=== PATIENT | male | born 1960 | race Caucasian/White ===

== ENCOUNTER 2018-12-26 08:55 | Inpatient (IN) | payer SELFPAY ==
[2018-12-26] MEDS ORDERED: PIPERACILLIN/TAZOBACTAM 3.375 GM VIAL IV ONE (09:17)
--- NOTE | 2018-12-26 09:20 | ER Document Report ---
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 Hypotensive and tachycardic prior to arrival. Lactic increased per EMS the other [id number] measurement. Seen at [place] typically. TRAVEL OUTSIDE OF THE [place] IN LAST 30 DAYS: No - Related Data Allergies/Adverse Reactions: codeine Adverse Reaction (Verified 12/19/18 16:37) latex Adverse Reaction (Verified 12/19/18 16:37) Past Medical History - General Information source: Patient - Social History Smoking Status: Former Smoker Chew tobacco use (# tins/day): No Frequency of alcohol use: None Drug Abuse: None Family History: Reviewed & Not Pertinent Patient has suicidal ideation: No Patient has homicidal ideation: No Neurological Medical History: Reports: Hx Seizures Renal/ Medical History: Denies: Hx Peritoneal Dialysis Malignancy Medical History: Reports Hx Liver Cancer GI Medical History: Reports: Hx Gastroesophageal Reflux Disease Review of Systems - Review of Systems Notes: REVIEW OF SYSTEMS GEN: This, no fevers ENT: Denies sore throat, nasal discharge, ear pain EYES: Denies blurry vision, eye pain, discharge CV: Denies chest pain, palpitations, edema of breath as of breath Respiratory: Shortness of breath GI: Denies abdominal pain, nausea, vomiting, diarrhea MSK: Denies joint pain/swelling, edema, SKIN: Denies rash, skin lesions LYMPH: Denies swollen glands/lymph nodes NEURO: Denies headache, focal weakness or numbness, dizziness PSYCH: Denies depression, suicidal or homicidal ideation PHYSICAL EXAMINATION General: Cachectic and weak Head: Atraumatic, normocephalic ENT: Mouth normal, oropharynx moist, no exudates or tonsillar enlargement Eyes: Conjunctiva normal, pupils equal, lids normal Neck: No JVD, supple, no guarding CVS: Normal rate, regular rhythm, no murmurs Resp: No resp distress, equal and normal breath sounds bilaterally GI: Nondistended, soft, no tenderness to palpation, no rebound or guarding clear biliary drainage from percutaneous drain. Ext: No deformities, no edema, normal range of motion in upper and lower ext Back: No CVA or midline TTP Skin: No rash, warm Lymphatic: No lymphadeopathy noted Neuro: Awake, alert. Face symmetric. GCS 15. Physical Exam - Vital signs Vitals: Pulse Resp BP 78 18 103/82 12/26/18 09:42 12/26/18 09:42 12/26/18 09:42 Course - Re-evaluation Re-evalutation: 12/26/18 09:19 Cancer patient presents with dehydration versus sepsis. Will give 30 mL/kg. Lactic already elevated per EMS. Ordered Zosyn. Bile drainage is clear and abdomen is nontender so doubt this is his source. 12/26/18 13:35 Patient's labs show elevated white count. I will cover him with antibiotics. He also has evidence of dehydration and acute kidney injury with hyperkalemia. I have given him a cocktail of medications excluding Lasix and Kayexalate due to his possible sepsis. Resuscitation led to a decrease in heart rate. He felt better. Does not with hospitalist for admission. 12/26/18 13:37 CT does not show a drainable abscess collection or source of infection. - Vital Signs Vital signs: Temp Pulse Resp BP Pulse Ox 78 16 101/66 98 12/26/18 09:42 12/26/18 12:01 12/26/18 12:01 12/26/18 12:01 - Laboratory Result Diagrams: 12/26/18 09:00 12/26/18 12:20 Laboratory results interpreted by me: 12/26/18 12/26/18 12/26/18 09:00 09:00 09:00 WBC 17.4 H Plt Count 743 H Absolute Neutrophils 10.7 H Absolute Lymphocytes 5.3 H PT 20.5 H Sodium 136.6 L Potassium 6.2 H* Chloride 97 L BUN 43 H Creatinine 1.80 H Est GFR ( Amer) 47 L Est GFR (Non-Af Amer) 39 L Glucose 148 H Calcium 10.5 H Total Bilirubin 2.5 H Direct Bilirubin 2.1 H Alkaline Phosphatase 322 H Total Protein 9.4 H - Diagnostic Test Radiology reviewed: Image reviewed, Reports reviewed - EKG Interpretation by Me EKG shows normal: Sinus rhythm Rate: Normal, Tachycardia Rhythm: NSR Critical Care Note - Critical Care Note Total time excluding time spent on procedures (mins): 35 Comments: The above patient is critically ill. Not including procedures, but including direct re-evaluations, speaking with patient and/or consultants, interpreting results, and documenting, I spent the total amount of minute listed listed above on critical care time Discharge - Discharge Clinical Impression: Acute kidney injury, Hyperkalemia Condition: Good Disposition: ADMITTED INPATIENT Admitting Provider: Angel (Hospitalist) Unit Admitted: Medical Floor
[2018-12-26 09:32] LABS: ABSOLUTE BASOPHILS # (AUTO) 0.1 10^3/uL (0.0-0.2); ABSOLUTE EOSINOPHILS # (AUTO) 0.1 10^3/uL (0.0-0.6); ABSOLUTE LYMPHOCYTES (AUTO) 5.3 10^3/uL (0.5-4.7); ABSOLUTE MONOCYTES (AUTO) 1.3 10^3/uL (0.1-1.4); ABSOLUTE NEUT (AUTO) 10.7 10^3/uL (1.7-8.2); BASOPHILS % (AUTO) 0.7 % (0-2); EOSINOPHILS % (AUTO) 0.4 % (0-6); HEMATOCRIT 42.1 % (37.9-51.0); HEMOGLOBIN 14.7 g/dL (13.5-17.0); LYMPHOCYTES % (AUTO) 30.4 % (13-45); MEAN CORPUSCULAR HEMOGLOBIN 30.9 pg (27.0-33.4); MEAN CORPUSCULAR HGB CONC 34.9 g/dL (32.0-36.0); MEAN CORPUSCULAR VOLUME 89 fl (80-97); MONOCYTES % (AUTO) 7.2 % (3-13); PLATELET COUNT 743 10^3/uL (150-450); RED BLOOD COUNT 4.75 10^6/uL (4.35-5.55); RED CELL DISTRIBUTION WIDTH 13.4 % (11.5-14.0); SEGMENTED NEUTROPHILS % (AUTO) 61.3 % (42-78); TOTAL CELLS COUNTED % (AUTO) 100 %; WHITE BLOOD COUNT 17.4 10^3/uL (4.0-10.5)
[2018-12-26 09:39] LABS: ALANINE AMINOTRANSFERASE 72 U/L (21-72); ALKALINE PHOSPHATASE 322 U/L (38-126); ANION GAP 17 (5-19); ASPARTATE AMINO TRANSFERASE 59 U/L (17-59); BILIRUBIN,DIRECT 2.1 mg/dL (0.0-0.4); BILIRUBIN,TOTAL 2.5 mg/dL (0.2-1.3); BLOOD UREA NITROGEN 43 mg/dL (7-20); CALCIUM 10.5 mg/dL (8.4-10.2); CARBON DIOXIDE 23 mmol/L (22-30); CHLORIDE 97 mmol/L (98-107); GLUCOSE 148 mg/dL (75-110); TOTAL PROTEIN 9.4 g/dL (6.3-8.2)
[2018-12-26 09:45] LABS: POTASSIUM 6.2 mmol/L (3.6-5.0)
[2018-12-26] MEDS ORDERED: ALBUTEROL SULFATE 0.083% NEB 2.5 MG/3 ML AMPUL NEB ONE (09:48)
[2018-12-26] MEDS ORDERED: DEXTROSE 50%-WATER 25 GM/50 ML DISP.SYRIN IV ONE (09:48)
[2018-12-26] MEDS ORDERED: INSULIN REG, HUMAN 100 UNIT/ML 3 ML VIAL (PYX) IV ONE (09:48)
[2018-12-26 10:08] LABS: INTERNATIONAL RATION (INR) 1.73; PROTHROMBIN TIME 20.5 SEC (11.4-15.4)
[2018-12-26] MEDS: RINGERS SOLUTION,LACTATED 1,000 ML IV PRN ×2 (10:08→10:57)
[2018-12-26] MEDS ORDERED: TEMAZEPAM 15 MG CAPSULE PO PRN (10:33)
[2018-12-26] MEDS ORDERED: NORMAL SALINE 1000 ML 1,000 ML IV PRN (10:33)
[2018-12-26] MEDS ORDERED: MAG HYDROX/AL HYDROX/SIMETH SUSP 30 ML UDCUP PO PRN (10:33)
[2018-12-26] MEDS ORDERED: ACETAMINOPHEN 325 MG TABLET PO PRN (10:33)
[2018-12-26] MEDS ORDERED: DEXTROSE 40% GEL 15 GM TUBE PO PRN ×2 (10:52)
[2018-12-26] MEDS ORDERED: DEXTROSE 50%-WATER 25 GM/50 ML DISP.SYRIN IV PRN ×2 (10:52)
[2018-12-26] MEDS ORDERED: GLUCAGON,HUMAN RECOMB 1 MG INJ IM PRN (10:52)
--- NOTE | 2018-12-26 10:54 | RADIOLOGY REPORT (SQ) ---
EXAM DESCRIPTION: CHEST SINGLE VIEW COMPLETED DATE/TIME: 12/26/2018 9:54 am REASON FOR STUDY: sob, septic COMPARISON: None. EXAM PARAMETERS: NUMBER OF VIEWS: One view. TECHNIQUE: Single frontal radiographic view of the chest acquired. RADIATION DOSE: NA LIMITATIONS: None. FINDINGS: LUNGS AND PLEURA: No opacities, masses or pneumothorax. No pleural effusion. MEDIASTINUM AND HILAR STRUCTURES: No masses. Contour normal. HEART AND VASCULAR STRUCTURES: Heart normal in size. Normal vasculature. BONES: No acute findings. HARDWARE: None in the chest. OTHER: No other significant finding. IMPRESSION: NO ACUTE RADIOGRAPHIC FINDING IN THE CHEST. TECHNICAL DOCUMENTATION: JOB ID: [id number] [email or web address]- All Rights Reserved Reading location - IP/workstation name: [email or web address]
--- NOTE | 2018-12-26 10:54 | Progress Note Acknowledgement ---
Progress Note Acknowledgement Progess Note Acknowledgement: I, the undersigned member of the medical staff with appropriate privileges and with supervisory authority over [Duy Aranda], a dependent practice allied health professional, acknowledge that I have reviewed the progress notes entered on this patient, and in my professional judgment believe that the assessment made and/or any care evidenced was appropriate
[2018-12-26] MEDS ORDERED: SODIUM POLYSTYRENE SULFONATE 15 GM/60 ML PO ONE (11:00)
[2018-12-26] MEDS ORDERED: VANCOMYCIN HCL 0 MG in DEXTROSE 5%-WATER 250 ML IV NR (11:00)
--- NOTE | 2018-12-26 11:07 | PDOC H&P ---
History of Present Illness Admission Date/PCP: 12/26/18 10:30 MADIHA HARMAN Patient complains of: Weakness, fatigue, tachycardia shortness of breath History of Present Illness: JOANNA PUENTE is a 58 year old male with known gallbladder cancer who is not undergoing chemo or radiation at this time but is scheduled to start soon at [place]. Patient presented via EMS with complaints of fatigue and weakness along with tachycardia and shortness of breath. Patient was found to have a elevated lactic acid in the field we have a lactic acid running at this moment. Patient was found to be tachycardic hyperkalemic and septic according to protocol. Patient was given 30 mL's of normal saline per protocol with a repeat lactic acid running at this moment. Patient placed on IV antibiotics IV fluids and will be placed in IMCU. Patient also had hyperkalemia for which she was given sodium bicarbonate, calcium, IV insulin and dextrose and I given 30 g of K ayexalate orally. Will repeat potassium level at 3 PM. Patient had no treatment prior to arrival no other or known aggravating factors. Past Medical History Neurological Medical History: Reports: Seizures Malignancy Medical History: Reports: Liver Cancer GI Medical History: Reports: Gastroesophageal Reflux Disease Past Surgical History Past Surgical History: Reports: Other - Biliary drain Social History Information Source: Patient Lives with: Family Smoking Status: Former Smoker Frequency of Alcohol Use: None Hx Recreational Drug Use: No Drugs: None Hx Prescription Drug Abuse: No - Advance Directive Resuscitation Status: Full Code Family History Family History: Hypertension Parental Family History Reviewed: Yes Children Family History Reviewed: Yes Sibling(s) Family History Reviewed.: Yes Medication/Allergy Allergies/Adverse Reactions: codeine Adverse Reaction (Verified 12/19/18 16:37) latex Adverse Reaction (Verified 12/19/18 16:37) Review of Systems Constitutional: PRESENT: fatigue, weakness Eyes: ABSENT: visual disturbances Ears: ABSENT: hearing changes Cardiovascular: ABSENT: chest pain, dyspnea on exertion, edema, orthropnea, palpitations Respiratory: PRESENT: dyspnea. ABSENT: cough, hemoptysis Gastrointestinal: ABSENT: abdominal pain, constipation, diarrhea, hematemesis, hematochezia, nausea, vomiting Genitourinary: ABSENT: dysuria, hematuria Musculoskeletal: ABSENT: joint swelling Integumentary: ABSENT: rash, wounds Neurological: ABSENT: abnormal gait, abnormal speech, confusion, dizziness, focal weakness, syncope Psychiatric: ABSENT: anxiety, depression, homidical ideation, suicidal ideation Endocrine: ABSENT: cold intolerance, heat intolerance, polydipsia, polyuria Hematologic/Lymphatic: ABSENT: easy bleeding, easy bruising Physical Exam Vital Signs: Temp Pulse Resp BP Pulse Ox 78 17 110/74 100 12/26/18 09:42 12/26/18 10:04 12/26/18 10:04 12/26/18 10:04 Intake & Output 12/25/18 12/26/18 12/27/18 06:59 06:59 06:59 Weight 69.4 kg General appearance: PRESENT: no acute distress, well-developed, well-nourished Head exam: PRESENT: atraumatic, normocephalic Eye exam: PRESENT: conjunctiva pink, EOMI, PERRLA. ABSENT: scleral icterus Ear exam: PRESENT: normal external ear exam Mouth exam: PRESENT: moist, tongue midline Neck exam: ABSENT: carotid bruit, JVD, lymphadenopathy, thyromegaly Respiratory exam: PRESENT: clear to auscultation deysi. ABSENT: rales, rhonchi, wheezes Cardiovascular exam: PRESENT: RRR. ABSENT: diastolic murmur, rubs, systolic murmur Pulses: PRESENT: normal dorsalis pedis pul Vascular exam: PRESENT: normal capillary refill GI/Abdominal exam: PRESENT: normal bowel sounds, soft, other - Biliary drain in place. ABSENT: distended, guarding, mass, organolmegaly, rebound, tenderness Rectal exam: PRESENT: deferred Extremities exam: PRESENT: full ROM. ABSENT: calf tenderness, clubbing, pedal edema Neurological exam: PRESENT: alert, awake, oriented to person, oriented to place, oriented to time, oriented to situation, CN II-XII grossly intact. ABSENT: motor sensory deficit Psychiatric exam: PRESENT: appropriate affect, normal mood. ABSENT: homicidal ideation, suicidal ideation Skin exam: PRESENT: dry, intact, warm. ABSENT: cyanosis, rash Adult Front & Back Image: 1 - Biliary drain Results Laboratory Results: 12/26/18 09:00 12/26/18 09:00 12/26/18 12/26/18 12/26/18 09:00 09:00 09:30 WBC 17.4 H RBC 4.75 Hgb 14.7 Hct 42.1 MCV 89 MCH 30.9 MCHC 34.9 RDW 13.4 Plt Count 743 H Seg Neutrophils % 61.3 Lymphocytes % 30.4 Monocytes % 7.2 Eosinophils % 0.4 Basophils % 0.7 Absolute Neutrophils 10.7 H Absolute Lymphocytes 5.3 H Absolute Monocytes 1.3 Absolute Eosinophils 0.1 Absolute Basophils 0.1 Sodium 136.6 L Potassium 6.2 H* Chloride 97 L Carbon Dioxide 23 Anion Gap 17 BUN 43 H Creatinine 1.80 H Est GFR ( Amer) 47 L Est GFR (Non-Af Amer) 39 L Glucose 148 H Lactic Acid 1.7 Calcium 10.5 H Total Bilirubin 2.5 H AST 59 ALT 72 Alkaline Phosphatase 322 H Total Protein 9.4 H Albumin 5.0 Assessment and Plan - Diagnosis (1) Liver metastasis Is this a current diagnosis for this admission?: Yes Plan: 12/26/2018-patient with known gallbladder CA with metastasis. Patient getting ready to undergo chemotherapy radiation therapy at . We will provide supportive measures and sign for pain or other symptoms. (2) Acute kidney injury Is this a current diagnosis for this admission?: Yes Plan: 12/26/2018-unknown if this is chronic in nature. Will hydrate patient patient did get 30 mL/kg in the ER secondary to high lactic acid. We will continue normal saline 125 an hour. I am awaiting repeat lactic acid. Will repeat BMP in the a.m. (3) Hyperkalemia Is this a current diagnosis for this admission?: Yes Plan: 12/26/2018-patient was given sodium bicarb, calcium, IV insulin and dextrose in the ER. I gave patient Kayexalate 30 g orally x1. Repeat potassium level at 3 PM is on room retreat as appropriate. (4) Elevated total protein Is this a current diagnosis for this admission?: Yes Plan: 12/26/2018-obtain serum protein electrophoresis check for malignant myeloma (5) Thrombocytosis Is this a current diagnosis for this admission?: Yes Plan: 12/26/2018-platelets 743. Could be hemoconcentrated. Will give normal saline repeat CBC in the a.m. (6) Leukocytosis Is this a current diagnosis for this admission?: Yes Plan: 7 07/09/2018-white count 17,000. Patient being covered for sepsis at this time. Vancomycin, Zosyn, IV fluids. Await cultures. Treat as appropriate. - Time Time Spent with patient: 35 or more minutes Anticipated discharge: Home - Inpatient Certification Based on my medical assessment, after consideration of the patient's com orbidities, presenting symptoms, or acuity I expect that the services needed warrant INPATIENT care.: Yes I certify that my determination is in accordance with my understanding of Medicare's requirements for reasonable and necessary INPATIENT services [42 CFR 412.3e].: Yes Medical Necessity: Other - IV fluids, IV antibiotics, pain control.
[2018-12-26 11:18] LABS: APPEARANCE,URINE CLEAR; BILIRUBIN,URINE NEGATIVE (NEGATIVE); COLOR,URINE YELLOW; GLUCOSE, URINE 150 mg/dL (NEGATIVE); KETONES,URINE NEGATIVE (NEGATIVE); LEUKOCYTE ESTERASE,URINE NEGATIVE (NEGATIVE); NITRITE,URINE NEGATIVE (NEGATIVE); PROTEIN,URINE NEGATIVE (NEGATIVE); UROBILINOGEN,URINE NEGATIVE mg/dL (<2.0)
--- NOTE | 2018-12-26 11:18 | ADVANCED CARE ---
- Diagnosis (1) Liver metastasis Diagnosis Current: Yes (2) Acute kidney injury Diagnosis Current: Yes (3) Hyperkalemia Diagnosis Current: Yes (4) Elevated total protein Diagnosis Current: Yes (5) Thrombocytosis Diagnosis Current: Yes (6) Leukocytosis Diagnosis Current: Yes Attendance: Myself, patient is family. Resuscitation Status: Full Code Discussion: Discussed plan of care. Patient with possible sepsis. IV antibiotics, IV fluids, await cultures. Patient does have hyperkalemia he received emergent treatment ER including sodium bicarb, calcium, IV insulin and dexterous. I gave patient Kayexalate 30 g p.o. x1. Repeat potassium level at 3 PM. Patient has an elevated total protein we will obtain a serum protein electrophoresis. Pain management is needed. Supportive measures otherwise. Patient family in agreement with plan of care Care Planning Goals: 1-IV fluids per sepsis protocol 2-antibiotic therapy. 3-await cultures. 4-Kayexalate in addition to emergent treatment for hyperkalemia. Repeat potassium at 3 PM. 5-pain management and supportive measures. 6-seizure management. Patient's not had seizures since the 1980s. Time Spent: 20 minutes
[2018-12-26] MEDS: PIPERACILLIN SODIUM/TAZOBACTAM 3.375 GM in NORMAL SALINE 100 ML IV SCH ×2 (11:33→18:56)
[2018-12-26 12:51] LABS: ANION GAP 10 (5-19); BLOOD UREA NITROGEN 32 mg/dL (7-20); CALCIUM 8.6 mg/dL (8.4-10.2); CARBON DIOXIDE 23 mmol/L (22-30); CHLORIDE 105 mmol/L (98-107); GLUCOSE 190 mg/dL (75-110)
--- NOTE | 2018-12-26 12:52 | RADIOLOGY REPORT (SQ) ---
EXAM DESCRIPTION: CT ABD/PELVIS WITH IV ONLY COMPLETED DATE/TIME: 12/26/2018 11:37 am REASON FOR STUDY: biliary CA, sepsis, cholecystostomy COMPARISON: None. TECHNIQUE: CT scan of the abdomen and pelvis performed using helical scanning technique with dynamic intravenous contrast injection. No oral contrast. Images reviewed with lung, soft tissue, and bone windows. Reconstructed coronal and sagittal MPR images reviewed. Delayed images for evaluation of the urinary system also acquired. All images stored on PACS. All CT scanners at this facility use dose modulation, iterative reconstruction, and/or weight based d osing when appropriate to reduce radiation dose to as low as reasonably achievable (ALARA). [facility]: Dose Right [facility]: CareDose [facility]: Dose Right [facility]: Teradose 4D [facility]: [place] CONTRAST TYPE AND DOSE: contrast/concentration: Isovue 300.00 mg/ml; Total Contrast Delivered: 79.0 ml; Total Saline Delivered: 68.0 ml RENAL FUNCTION: BUN 43 creatinine 1.8 GFR 39 RADIATION DOSE: CT Rad equipment meets quality standard of care and radiation dose reduction techniq ues were employed. CTDIvol: 7.4 - 10.3 mGy. DLP: 1007 mGy-cm.. LIMITATIONS: None. FINDINGS: LOWER CHEST: No significant findings. No nodules or infiltrates. LIVER: There is a 6 cm area of decreased attenuation in the right lobe of the liver. This is irregul ar and heterogeneous. There may be peripheral enhancement. Prior TIPS procedure versus biliary sten t. Pigtail catheter in the hepatic hilum. SPLEEN: Normal size. No focal lesions. PANCREAS: No masses. No significant calcifications. No adjacent inflammation or peripancreatic fluid collections. Pancreatic duct not dilated. GALLBLADDER: Surgically absent. ADRENAL GLANDS: No significant masses or asymmetry. RIGHT KIDNEY AND URETER: No solid masses. No significant calcifications. No hydronephrosis or hyd roureter. LEFT KIDNEY AND URETER: No solid masses. No significant calcifications. No hydronephrosis or hydr oureter. AORTA AND VESSELS: No aneurysm. No dissection. Renal arteries, SMA, celiac without stenosis. RETROPERITONEUM: No retroperitoneal adenopathy, hemorrhage or masses. BOWEL AND PERITONEAL CAVITY: No masses or inflammatory changes. No free fluid or peritoneal masses. APPENDIX: Normal. PELVIS: No mass. No free fluid. Normal bladder. ABDOMINAL WALL: No masses. No hernias. BONES: No significant or acute findings. OTHER: No other significant finding. IMPRESSION: Surgical changes. 6 mm area of decreased attenuation in the right lobe of the liver may have peripheral enhancement and may represent a hemangioma. Cannot exclude neoplasm. TECHNICAL DOCUMENTATION: JOB ID: [id number] Quality ID # [id number]: Final reports with documentation of one or more dose reduction techniques (e.g., Au tomated exposure control, adjustment of the mA and/or kV according to patient size, use of iterative reconstruction technique) 2010 [employer]- All Rights Reserved Reading location - IP/workstation name: [email or web address]
[2018-12-26 13:11] LABS: POTASSIUM 4.6 mmol/L (3.6-5.0)
[2018-12-26] MEDS: VANCOMYCIN HCL 1,500 MG in DEXTROSE 5%-WATER 250 ML IV SCH (13:49)
--- NOTE | 2018-12-26 14:47 | EKG REPORT ---
SEVERITY:- ABNORMAL ECG - SINUS RHYTHM BORDERLINE LEFT AXIS DEVIATION NONSPECIFIC T ABNORMALITIES, INFERIOR LEADS : Confirmed by: Katerin Palomares MD 26-Dec-2018 14:46:25
[2018-12-26] MEDS ORDERED: (PENDING PHARMACY ID) (Sennosides [Senna] 8.6 MG) PO PRN (17:36)
[2018-12-26] MEDS ORDERED: (PENDING PHARMACY ID) (Ranitidine Hcl [Zantac] 150 MG) PO SCH (18:00)
[2018-12-26] MEDS: INSULIN REG, HUMAN 100 UNIT/ML 3 ML VIAL (PYX) SUBCUT SCH ×2 (18:48→21:40)
[2018-12-26] MEDS: HEPARIN SOD (PORCINE) 5,000 UNIT/ML 1 ML VIAL SUBCUT SCH ×3 (18:49→21:47)
[2018-12-26] MEDS: OXYCODONE-ACETAMINOPHEN 5-325 MG TABLET PO PRN (20:43)
[2018-12-26] MEDS: URSODIOL 300 MG CAPSULE PO SCH (21:41)
[2018-12-26] MEDS: PHENYTOIN SODIUM EXTENDED 100 MG CAPSULE PO SCH (21:41)
[2018-12-26] MEDS: CARBAMAZEPINE 200 MG TABLET PO SCH (21:41)
[2018-12-26] MEDS: FAMOTIDINE 20 MG TABLET PO SCH (21:41)
[2018-12-27] MEDS: PIPERACILLIN SODIUM/TAZOBACTAM 3.375 GM in NORMAL SALINE 100 ML IV SCH ×5 (00:09→18:41)
[2018-12-27] MEDS: ONDANSETRON HCL INJ/PF 4 MG/2 ML SDV IV PRN (01:41)
[2018-12-27] MEDS: HEPARIN SOD (PORCINE) 5,000 UNIT/ML 1 ML VIAL SUBCUT SCH ×3 (05:12→21:40)
[2018-12-27 05:46] LABS: ABSOLUTE BASOPHILS # (AUTO) 0.1 10^3/uL (0.0-0.2); ABSOLUTE EOSINOPHILS # (AUTO) 0.1 10^3/uL (0.0-0.6); ABSOLUTE LYMPHOCYTES (AUTO) 1.4 10^3/uL (0.5-4.7); ABSOLUTE NEUT (AUTO) 7.8 10^3/uL (1.7-8.2); BASOPHILS % (AUTO) 0.6 % (0-2); EOSINOPHILS % (AUTO) 1.2 % (0-6); HEMATOCRIT 32.5 % (37.9-51.0); LYMPHOCYTES % (AUTO) 13.6 % (13-45); MEAN CORPUSCULAR HEMOGLOBIN 30.7 pg (27.0-33.4); MEAN CORPUSCULAR HGB CONC 34.9 g/dL (32.0-36.0); MEAN CORPUSCULAR VOLUME 88 fl (80-97); MONOCYTES % (AUTO) 9.6 % (3-13); PLATELET COUNT 398 10^3/uL (150-450); RED BLOOD COUNT 3.69 10^6/uL (4.35-5.55); RED CELL DISTRIBUTION WIDTH 13.2 % (11.5-14.0); TOTAL CELLS COUNTED % (AUTO) 100 %; WHITE BLOOD COUNT 10.4 10^3/uL (4.0-10.5)
[2018-12-27 05:58] LABS: HEMOGLOBIN 11.3 g/dL (13.5-17.0)
[2018-12-27 06:01] LABS: ANION GAP 8 (5-19); BLOOD UREA NITROGEN 25 mg/dL (7-20); CALCIUM 8.6 mg/dL (8.4-10.2); CARBAMAZEPINE 4.8 ug/mL (4.0-12.0); CARBON DIOXIDE 22 mmol/L (22-30); CHLORIDE 110 mmol/L (98-107); GLUCOSE 89 mg/dL (75-110); PHENYTOIN 6.9 ug/mL (10.0-20.0); PHOSPHORUS 4.6 mg/dL (2.5-4.5); POTASSIUM 4.8 mmol/L (3.6-5.0)
[2018-12-27] MEDS: PANTOPRAZOLE SODIUM 40 MG TABLET.DR PO SCH (08:34)
[2018-12-27] MEDS: INSULIN REG, HUMAN 100 UNIT/ML 3 ML VIAL (PYX) SUBCUT SCH ×4 (09:59→21:40)
[2018-12-27] MEDS: FAMOTIDINE 20 MG TABLET PO SCH ×2 (10:14→21:37)
[2018-12-27] MEDS: URSODIOL 300 MG CAPSULE PO SCH ×2 (10:14→21:37)
[2018-12-27] MEDS: OXYCODONE-ACETAMINOPHEN 5-325 MG TABLET PO PRN (11:44)
[2018-12-27] MEDS: VANCOMYCIN HCL 1,500 MG in DEXTROSE 5%-WATER 250 ML IV SCH ×2 (18:16→18:40)
--- NOTE | 2018-12-27 20:37 | PDOC PROGRESS REPORT ---
Subjective Progress Note for:: 12/27/18 Subjective:: The patient is a 58-year-old male with a past medical history of gallbladder cancer who is scheduled to start chemoradiation at [facility], seizure disorder, GERD and recent biliary drain placement who was admitted 12/26/2018 for QUANG secondary to dehydration. Patient was seen on morning rounds. He is found resting in the recliner, comfortably, on room air. He reports that he is feeling better than at time of admission. However, he does continue to have generalized fatigue, nausea, and poor appetite. He denies fever, chills, chest pain, dyspnea, orthopnea, abdominal pain, emesis, diarrhea and constipation. Has no other questions or concerns at this time. No concerns per nursing. Reason For Visit: SIRS,HYPERKALEMIA,BILIARY CA Physical Exam Vital Signs: Temp Pulse Resp BP Pulse Ox 98.1 F 76 15 128/73 H 98 12/27/18 20:13 12/27/18 20:13 12/27/18 20:13 12/27/18 20:13 12/27/18 20:13 Intake & Output 12/26/18 12/27/18 12/28/18 06:59 06:59 06:59 Intake Total 2716 580 Balance 2716 580 Weight 69.4 kg General appearance: PRESENT: no acute distress, cooperative, well-developed, well-nourished Head exam: PRESENT: atraumatic, normocephalic Eye exam: PRESENT: conjunctiva pink, EOMI, PERRLA. ABSENT: scleral icterus Ear exam: PRESENT: normal external ear exam Mouth exam: PRESENT: moist, tongue midline Neck exam: ABSENT: carotid bruit, JVD, lymphadenopathy, thyromegaly Respiratory exam: PRESENT: clear to auscultation deysi, symmetrical, unlabored. ABSENT: rales, rhonchi, wheezes Cardiovascular exam: PRESENT: RRR, +S1, +S2. ABSENT: diastolic murmur, rubs, systolic murmur Pulses: PRESENT: normal dorsalis pedis pul Vascular exam: PRESENT: normal capillary refill GI/Abdominal exam: PRESENT: normal bowel sounds, soft, tenderness, other. ABSEN T: distended, guarding, mass, organolmegaly, rebound Rectal exam: PRESENT: deferred Extremities exam: PRESENT: full ROM. ABSENT: calf tenderness, clubbing, pedal edema Musculoskeletal exam: PRESENT: ambulatory Neurological exam: PRESENT: alert, awake, oriented to person, oriented to place, oriented to time, oriented to situation, CN II-XII grossly intact. ABSENT: motor sensory deficit Psychiatric exam: PRESENT: appropriate affect, normal mood. ABSENT: homicidal ideation, suicidal ideation Skin exam: PRESENT: dry, intact, warm. ABSENT: cyanosis, rash Results Laboratory Results: 12/27/18 04:30 12/27/18 04:30 12/27/18 12/27/18 04:30 04:30 WBC 10.4 RBC 3.69 L Hgb 11.3 L D Hct 32.5 L MCV 88 MCH 30.7 MCHC 34.9 RDW 13.2 Plt Count 398 Seg Neutrophils % 75.0 Lymphocytes % 13.6 Monocytes % 9.6 Eosinophils % 1.2 Basophils % 0.6 Absolute Neutrophils 7.8 Absolute Lymphocytes 1.4 Absolute Monocytes 1.0 Absolute Eosinophils 0.1 Absolute Basophils 0.1 Sodium 139.6 Potassium 4.8 Chloride 110 H Carbon Dioxide 22 Anion Gap 8 BUN 25 H Creatinine 1.16 Est GFR ( Amer) > 60 Est GFR (Non-Af Amer) > 60 Glucose 89 Calcium 8.6 Phosphorus 4.6 H Magnesium 2.1 Impressions: Chest X-Ray 12/26/18 09:14 IMPRESSION: NO ACUTE RADIOGRAPHIC FINDING IN THE CHEST. Abdomen/Pelvis CT 12/26/18 09:53 IMPRESSION: Surgical changes. 6 mm area of decreased attenuation in the right lobe of the liver may have peripheral enhancement and may represent a hemangioma. Cannot exclude neoplasm. Assessment and Plan - Diagnosis (1) Acute kidney injury Is this a current diagnosis for this admission?: Yes Plan: Resolved; creatinine 1.80-> 1.16 Prerenal secondary to dehydration resulting from poor p.o. intake, nausea and vomiting. Continue gentle IV fluids. Avoid nephrotoxic medications. Daily chemistry. (2) Hyperkalemia Is this a current diagnosis for this admission?: Yes Plan: Resolved; secondary to QUANG. Daily chemistries. (3) Leukocytosis Is this a current diagnosis for this admission?: Yes Plan: Resolved. Likely secondary to acute stress reaction; nausea, vomiting, dehydration and QUANG. Patient has been afebrile and has no focal source for infection. Chest x-ray is benign. Blood and Urine cultures are negative at 1 day. Patient was empirically placed on IV vancomycin and Zosyn; discussed with patient today had previously been on p.o. Levaquin x3 days prior to arrival for treatment of "possible infection." Will de-escalate/adjust as cultures result. (4) Thrombocytosis Is this a current diagnosis for this admission?: Yes Plan: Resolved; acute phase reactant versus hemoconcentration related to dehydration. (5) Dehydration Is this a current diagnosis for this admission?: Yes Plan: Resolved. Continue gentle IV fluids. Patient's diet has been advanced; if tolerating p.o. and taking in adequate fluids may consider early discharge to home tomorrow. (6) Liver metastasis Is this a current diagnosis for this admission?: Yes Plan: Continue outpatient medication regiment. Follow-up with established oncologist as scheduled. - Time Time Spent with patient: 25-34 minutes Medications reviewed and adjusted accordingly: Yes Anticipated discharge: Home Within: within 24 hours
--- NOTE | 2018-12-27 20:37 | Progress Note Acknowledgement ---
Progress Note Acknowledgement Progess Note Acknowledgement: I, the undersigned member of the medical staff with appropriate privileges and with supervisory authority over Jory Nascimento, a [facility] practice allied health professional, acknowledge that I have reviewed the progress notes entered on this patient, and in my professional judgment believe that the assessment made and/or any care evidenced was appropriate
[2018-12-27] MEDS: CARBAMAZEPINE 200 MG TABLET PO SCH (21:37)
[2018-12-27] MEDS: PHENYTOIN SODIUM EXTENDED 100 MG CAPSULE PO SCH (21:37)
[2018-12-27] MEDS ORDERED: VANCOMYCIN HCL 1,500 MG in DEXTROSE 5%-WATER 250 ML IV SCH (22:00)
[2018-12-28] MEDS: ONDANSETRON HCL INJ/PF 4 MG/2 ML SDV IV PRN (00:41)
[2018-12-28] MEDS: OXYCODONE-ACETAMINOPHEN 5-325 MG TABLET PO PRN ×2 (00:41→06:21)
[2018-12-28] MEDS: PIPERACILLIN SODIUM/TAZOBACTAM 3.375 GM in NORMAL SALINE 100 ML IV SCH ×2 (00:41→06:08)
[2018-12-28] MEDS: HEPARIN SOD (PORCINE) 5,000 UNIT/ML 1 ML VIAL SUBCUT SCH (05:27)
[2018-12-28 06:33] LABS: HEMATOCRIT 32.8 % (37.9-51.0); HEMOGLOBIN 11.2 g/dL (13.5-17.0); MEAN CORPUSCULAR HEMOGLOBIN 30.4 pg (27.0-33.4); MEAN CORPUSCULAR HGB CONC 34.1 g/dL (32.0-36.0); MEAN CORPUSCULAR VOLUME 89 fl (80-97); PLATELET COUNT 421 10^3/uL (150-450); RED BLOOD COUNT 3.68 10^6/uL (4.35-5.55); RED CELL DISTRIBUTION WIDTH 13.3 % (11.5-14.0); WHITE BLOOD COUNT 12.9 10^3/uL (4.0-10.5)
[2018-12-28 06:54] LABS: ANION GAP 9 (5-19); BLOOD UREA NITROGEN 15 mg/dL (7-20); CALCIUM 8.6 mg/dL (8.4-10.2); CARBON DIOXIDE 22 mmol/L (22-30); CHLORIDE 108 mmol/L (98-107); GLUCOSE 96 mg/dL (75-110); POTASSIUM 4.6 mmol/L (3.6-5.0)
[2018-12-28] MEDS: INSULIN REG, HUMAN 100 UNIT/ML 3 ML VIAL (PYX) SUBCUT SCH (07:37)
[2018-12-28 08:18] VITALS: BP 97/68
[2018-12-28] MEDS: PANTOPRAZOLE SODIUM 40 MG TABLET.DR PO SCH (08:53)
[2018-12-28] MEDS ORDERED: OXYCODONE HCL IR 5 MG TABLET PO ONE (09:00)
[2018-12-28] MEDS: URSODIOL 300 MG CAPSULE PO SCH (10:11)
[2018-12-28] MEDS: FAMOTIDINE 20 MG TABLET PO SCH (10:11)
[2018-12-28 14:36] LABS: A/G RATIO. 0.8 (0.7-1.7); ALBUMIN 3 3.7 g/dL (2.9-4.4); ALPHA-1-GLOBULIN 0.4 g/dL (0.0-0.4); BETA GLOBULIN 1.4 g/dL (0.7-1.3); GAMMA GLOBULINS 1.2 g/dL (0.4-1.8); IMMUNOGLOBULIN A 342 mg/dL (90-386); IMMUNOGLOBULIN G 1100 mg/dL (700-1600); IMMUNOGLOBULIN M 215 mg/dL (20-172); MONOCLONAL-SPIKE Not Observed g/dL (Not Observ); PROTEIN TOTAL SERUM 8.4 g/dL (6.0-8.5)
--- NOTE | 2018-12-31 18:21 | PDOC DISCHARGE SUMMARY ---
General - Admit/Disc Date/PCP Admission Date/Primary Care Provider: 12/26/18 10:30 MADIHA HARMAN Discharge Date: 12/27/18 - Discharge Diagnosis (1) Dehydration Is this a current diagnosis for this admission?: Yes Summary: Resolved; secondary to nausea vomiting. Patient was provided gentle IV fluids and antiemetics as needed. He is tolerating a regular diet taking adequate p.o. fluids. (2) Liver metastases Is this a current diagnosis for this admission?: Yes Summary: Continue outpatient medication regiment. Follow-up with established oncologist as scheduled. (3) Acute kidney injury Is this a current diagnosis for this admission?: Yes Summary: Resolved; creatinine 1.80-> 1.16 Prerenal secondary to dehydration resulting from poor p.o. intake, nausea and vomiting. Patient was provided gentle IV fluids and antiemetics as needed. He is tolerating a regular diet taking adequate p.o. fluids. (4) Hyperkalemia Is this a current diagnosis for this admission?: Yes Summary: Resolved; secondary to QUANG. (5) Leukocytosis Is this a current diagnosis for this admission?: Yes Summary: Resolved. Likely secondary to acute stress reaction; nausea, vomiting, dehydration and QUANG. Patient has been afebrile and has no focal source for infection. Chest x-ray is benign. Blood and Urine cultures are negative. Patient was empirically placed on IV vancomycin and Zosyn; discussed with patient, had previously been on p.o. Levaquin x3 days prior to arrival for treatment of "possible infection." Discontinued all antibiotics and observed overnight; patient did not develop leukocytosis or febrile illness. No indications for further antibiotic treatment. (6) Thrombocytosis Is this a current diagnosis for this admission?: Yes Summary: Resolved; acute phase reactant versus hemoconcentration related to dehydration. - Additional Information Resuscitation Status: Full Code Discharge Diet: Regular Discharge Activity: Activity As Tolerated, Balance Activity w/Rest Prescriptions: Ondansetron [Zofran Odt 4 mg Tablet] 1 - 2 tab PO Q4HP PRN #20 tab.rapdis PRN Reason: Promethazine HCl [Promethegan] 25 mg RC Q6HP PRN #4 supp.rect PRN Reason: Vomiting Home Medications: Carbamazepine [Tegretol 200 mg Tablet] 800 mg PO QHS 12/26/18 Oxycodone HCl [Oxy-Ir 5 mg Tablet] 10 mg PO Q4HP PRN 12/26/18 Pantoprazole Sodium [Protonix [address] Tablet] 40 mg PO QAM 12/26/18 Phenytoin Sodium Extended [Dilantin 100 mg Capsule.er] 400 mg PO QHS 12/26/18 Ranitidine HCl [Zantac] 150 mg PO BID 12/26/18 Sennosides [Senna] 8.6 mg PO HSP PRN 12/26/18 Ursodiol [Actigall 300 mg Capsule] 300 mg PO Q12 12/26/18 Acetaminophen [Tylenol 325 mg Tablet] 325 mg PO Q4HP PRN tablet 12/27/18 Ondansetron [Zofran Odt 4 mg Tablet] 1 - 2 tab PO Q4HP PRN #20 tab.rapdis 12/28/18 Promethazine HCl [Promethegan] 25 mg RC Q6HP PRN #4 supp.rect 12/28/18 History of Present Illness History of Present Illness: Per H&P by Olegario Aranda: JOANNA PUENTE is a 58 year old male with known gallbladder cancer who is not undergoing chemo or radiation at this time but is scheduled to start soon at [facility]. Patient presented via EMS with complaints of fatigue and weakness along with tachycardia and shortness of breath. Patient was found to have a elevated lactic acid in the field we have a lactic acid running at this moment. Patient was found to be tachycardic hyperkalemic and septic according to protocol. Patient was given 30 mL's of normal saline per protocol with a repeat lactic acid running at this moment. Patient placed on IV antibiotics IV fluids and will be placed in IMCU. Patient also had hyperkalemia for which she was given sodium bicarbonate, calcium, IV insulin and dextrose and I given 30 g of Kayexalate orally. Will repeat potassium level at 3 PM. Patient had no treatment prior to arrival no other or known aggravating factors. Physical Exam Vital Signs: Temp Pulse Resp BP Pulse Ox 97.9 F 75 16 103/61 98 12/27/18 08:11 12/27/18 08:11 12/27/18 08:11 12/27/18 08:11 12/27/18 08:11 Intake & Output 12/26/18 12/27/18 12/28/18 06:59 06:59 06:59 Intake Total 2716 Balance 2716 Weight 69.4 kg General appearance: PRESENT: no acute distress, well-developed, well-nourished Head exam: PRESENT: atraumatic, normocephalic Eye exam: PRESENT: conjunctiva pink, EOMI, PERRLA. ABSENT: scleral icterus Ear exam: PRESENT: normal external ear exam Mouth exam: PRESENT: moist, tongue midline Neck exam: ABSENT: carotid bruit, JVD, lymphadenopathy, thyromegaly Respiratory exam: PRESENT: clear to auscultation deysi. ABSENT: rales, rhonchi, wheezes Cardiovascular exam: PRESENT: RRR. ABSENT: diastolic murmur, rubs, systolic murmur Pulses: PRESENT: normal dorsalis pedis pul Vascular exam: PRESENT: normal capillary refill GI/Abdominal exam: PRESENT: normal bowel sounds, soft. ABSENT: distended, guarding, mass, organolmegaly, rebound, tenderness Rectal exam: PRESENT: deferred Extremities exam: PRESENT: full ROM. ABSENT: calf tenderness, clubbing, pedal edema Neurological exam: PRESENT: alert, awake, oriented to person, oriented to place, oriented to time, oriented to situation, CN II-XII grossly intact. ABSENT: motor sensory deficit Psychiatric exam: PRESENT: appropriate affect, normal mood. ABSENT: homicidal ideation, suicidal ideation Skin exam: PRESENT: dry, intact, warm. ABSENT: cyanosis, rash Results Laboratory Results: 12/27/18 04:30 12/27/18 04:30 12/26/18 12/26/18 12/27/18 12:20 15:00 04:30 WBC 10.4 RBC 3.69 L Hgb 11.3 L D Hct 32.5 L MCV 88 MCH 30.7 MCHC 34.9 RDW 13.2 Plt Count 398 Seg Neutrophils % 75.0 Lymphocytes % 13.6 Monocytes % 9.6 Eosinophils % 1.2 Basophils % 0.6 Absolute Neutrophils 7.8 Absolute Lymphocytes 1.4 Absolute Monocytes 1.0 Absolute Eosinophils 0.1 Absolute Basophils 0.1 Sodium 137.5 Potassium 4.6 D 5.1 H Chloride 105 Carbon Dioxide 23 Anion Gap 10 BUN 32 H Creatinine 1.34 H Est GFR ( Amer) > 60 Est GFR (Non-Af Amer) 55 L Glucose 190 H Calcium 8.6 Phosphorus Magnesium 12/27/18 04:30 WBC RBC Hgb Hct MCV MCH MCHC RDW Plt Count Seg Neutrophils % Lymphocytes % Monocytes % Eosinophils % Basophils % Absolute Neutrophils Absolute Lymphocytes Absolute Monocytes Absolute Eosinophils Absolute Basophils Sodium 139.6 Potassium 4.8 Chloride 110 H Carbon Dioxide 22 Anion Gap 8 BUN 25 H Creatinine 1.16 Est GFR ( Amer) > 60 Est GFR (Non-Af Amer) > 60 Glucose 89 Calcium 8.6 Phosphorus 4.6 H Magnesium 2.1 Impressions: Chest X-Ray 12/26/18 09:14 IMPRESSION: NO ACUTE RADIOGRAPHIC FINDING IN THE CHEST. Abdomen/Pelvis CT 12/26/18 09:53 IMPRESSION: Surgical changes. 6 mm area of decreased attenuation in the right lobe of the liver may have peripheral enhancement and may represent a hemangioma. Cannot exclude neoplasm. Qualifiers - * PATIENT BEING DISCHARGED WITH ANY OF THE FOLLOWING DIAGNOSIS: No Acute Heart Failure - Is this a Heart Failure Patient?: No Plan Discharge Plan: Follow up with primary care provider within 1 week. Follow up with oncologist as scheduled. Drink plenty of water, eat as tolerated. Avoid prolonged heat exposure/exertion. Return to the emergency department as needed for concerning symptoms. Time Spent: Greater than 30 Minutes
== END 2018-12-28 11:13 | disposition home or self-care (01) | DRG 641 ==
LOC: ER 08:55 → EH 10:30 → 4N 15:44
PROVIDERS: ADMIT Internal Medicine; ATTEND Family Medicine
DX: E87.5 Hyperkalemia (principal); N17.9 Acute kidney failure, unspecified; C23 Malignant neoplasm of gallbladder; C78.7 Secondary malignant neoplasm of liver and intrahepatic bile duct; K21.9 Gastro-esophageal reflux disease without esophagitis; D47.3 Essential (hemorrhagic) thrombocythemia; G40.909 Epilepsy, unspecified, not intractable, without status epilepticus; E86.0 Dehydration; D72.829 Elevated white blood cell count, unspecified; Z87.891 Personal history of nicotine dependence; Z82.49 Family history of ischemic heart disease and other diseases of the circulatory system; Z88.6 Allergy status to analgesic agent; Z91.040 Latex allergy status
CPT/HCPCS: 36415; 71045; 74177; 80048; 80053; 80156; 80185; 81001; 82962; 83605; 83735; 84100; 84132; 85025; 85027; 85610; 86320; 87040; 87086; 93005; 93010; 94640; 96374; 99291; J1644; J1815; J2405; J2543; J3370; J3490; J7030; J7050; J7060; J7120

== ENCOUNTER 2019-01-04 09:41 | Emergency (ER) | payer SELFPAY ==
[2019-01-04] MEDS ORDERED: ONDANSETRON HCL INJ/PF 4 MG/2 ML SDV IV ONE (10:38)
[2019-01-04] MEDS ORDERED: NORMAL SALINE 1000 ML 1,000 ML IV ONE (10:38)
[2019-01-04] MEDS ORDERED: MORPHINE SULFATE 10 MG/ML INJ IV ONE (10:38)
[2019-01-04] MEDS ORDERED: KETOROLAC TROMETHAMINE INJ/PF 30 MG/1 ML SDV IV ONE (10:39)
--- NOTE | 2019-01-04 10:40 | ER Document Report ---
ED General - General Chief Complaint: Headache Stated Complaint: HEADACHE Time Seen by Provider: 01/04/19 10:28 Primary Care Provider: OBINNA TALLEY PA [Primary Care Provider] - Follow up as needed TRAVEL OUTSIDE OF THE [place] 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 He states he started to feel short of breath with exertion yesterday. He denies any orthopnea. He states he has had pain in his chest area since the placement of a drain in his gallbladder back in [facility] in November. He has had no change in the drainage from this. He has a frontal headache, that he currently rates a 7 out of 10. It is a dull ache. He gets headaches rarely, states this is not the worst headache of his life. He has not had any relief with his pain medication at home. He said his normal amount of nausea, no emesis. Denies any visual changes. He states he had a clogged sensation in his right ear with diminished hearing, but that was transient. He is moving his arms and legs without difficulty, again states that they just feel generally weak, not focally. Patient is not currently receiving chemotherapy or radiation. His doctors are waiting for him to get stronger to be able to start treatment. He said he had an MRI less than a month ago, it did not reveal any signs of disease beyond his gallbladder and liver. - Related Data Allergies/Adverse Reactions: codeine Adverse Reaction (Verified 12/19/18 16:37) latex Adverse Reaction (Verified 12/19/18 16:37) Past Medical History - General Information source: Patient, Relative - Social History Smoking Status: Former Smoker Chew tobacco use (# tins/day): No Frequency of alcohol use: None Drug Abuse: None Family History: Reviewed & Not Pertinent Patient has suicidal ideation: No Patient has homicidal ideation: No - Past Medical History Cardiac Medical History: Reports: Hx Hypertension Neurological Medical History: Reports: Hx Seizures Renal/ Medical History: Denies: Hx Peritoneal Dialysis Malignancy Medical History: Reports Hx Liver Cancer, Reports Other - Stage IV gallbladder cancer GI Medical History: Reports: Hx Gastroesophageal Reflux Disease Past Surgical History: Reports: Other - Biliary drain Physical Exam - Vital signs Vitals: Resp BP Pulse Ox 15 103/70 100 01/04/19 09:58 01/04/19 09:58 01/04/19 09:58 - Notes Notes: This is a frail-appearing 58-year-old male who appears his stated age in no acute distress. Vital signs reviewed, please refer to chart. Head is normocephalic, atraumatic. Pupils equal round, reactive to light. Neck is sup ple without meningismus. Heart is regular rate and rhythm. Lungs are clear to auscultation bilaterally. Abdomen is soft, globally tender, normoactive bowel sounds throughout. Biliary drain in place, no surrounding erythema. Extremities without cyanosis, clubbing. Posterior calves are nontender. Peripheral pulses are equal. Skin is warm and dry. Patient is awake, alert, oriented x3. Cranial nerves II - XII are grossly intact without focal neurological deficits. Strength is plus 3 out of 5 bilateral upper and lower extremities. Sensation is intact. Reflexes symmetrical. Intact finge [id number], rapid alternating movements, [id number]. Course - Re-evaluation Re-evalutation: 01/04/19 12:52 Patient feels entirely improved. I explained to him I believe he has some mild dehydration. He agrees. He states that he supposed to drink at least 48 ounces of water daily. He states that with his abdominal bloating, after eating, he has difficulty maintaining the sort of fluid intake. He is feeling back to baseline, anxious for discharge. He is told to try and stay hydrated, follow-up with primary care and oncology. He is to return to the ED with worsening or new concerning symptoms of any sort. - Vital Signs Vital signs: Temp Pulse Resp BP Pulse Ox 97.6 F 76 12 107/72 96 01/04/19 10:04 01/04/19 10:04 01/04/19 12:01 01/04/19 12:00 01/04/19 12:01 - Laboratory Result Diagrams: 01/04/19 09:14 01/04/19 09:14 Laboratory results interpreted by me: 01/04/19 01/04/19 09:14 09:14 WBC 15.0 H RDW 14.3 H Plt Count 482 H Absolute Neutrophils 9.9 H Carbon Dioxide 20 L BUN 28 H Creatinine 1.30 H Est GFR (Non-Af Amer) 57 L Glucose 115 H Total Bilirubin 1.7 H Direct Bilirubin 1.4 H Alkaline Phosphatase 229 H - Diagnostic Test Radiology reviewed: Reports reviewed Radiology results interpreted by me: 01/04/19 12:[address] 01/04/19 10:39 IMPRESSION: Left maxillary sinus disease with no acute intracranial imaging finding. EVIDENCE OF ACUTE STROKE: NO. Chest X-Ray 01/04/19 10:40 IMPRESSION: NO ACUTE RADIOGRAPHIC FINDING IN THE CHEST. - EKG Interpretation by Me Additional EKG results interpreted by me: 01/04/19 12:53 Sinus mechanism with a rate of 74 bpm. Normal axis and intervals, no acute ST changes concerning for ischemia or infarction. Discharge - Discharge Clinical Impression: Dehydration Headache Qualifiers: Headache type: unspecified Condition: Stable Disposition: HOME, SELF-CARE Instructions: Headache ([facility]) Additional Instructions: Rest, stay as hydrated as possible. Follow-up with your doctor this week. Return to the emergency department with worsening or new concerning symptoms. Referrals: OBINNA TALLEY PA [Primary Care Provider] - Follow up as needed
[2019-01-04 10:54] LABS: ABSOLUTE BASOPHILS # (AUTO) 0.1 10^3/uL (0.0-0.2); ABSOLUTE EOSINOPHILS # (AUTO) 0.2 10^3/uL (0.0-0.6); ABSOLUTE LYMPHOCYTES (AUTO) 3.9 10^3/uL (0.5-4.7); ABSOLUTE MONOCYTES (AUTO) 0.9 10^3/uL (0.1-1.4); ABSOLUTE NEUT (AUTO) 9.9 10^3/uL (1.7-8.2); BASOPHILS % (AUTO) 0.4 % (0-2); EOSINOPHILS % (AUTO) 1.6 % (0-6); HEMATOCRIT 42.9 % (37.9-51.0); HEMOGLOBIN 14.8 g/dL (13.5-17.0); LYMPHOCYTES % (AUTO) 25.9 % (13-45); MEAN CORPUSCULAR HEMOGLOBIN 30.6 pg (27.0-33.4); MEAN CORPUSCULAR HGB CONC 34.5 g/dL (32.0-36.0); MEAN CORPUSCULAR VOLUME 89 fl (80-97); MONOCYTES % (AUTO) 6.1 % (3-13); PLATELET COUNT 482 10^3/uL (150-450); RED BLOOD COUNT 4.83 10^6/uL (4.35-5.55); RED CELL DISTRIBUTION WIDTH 14.3 % (11.5-14.0); TOTAL CELLS COUNTED % (AUTO) 100 %
[2019-01-04 10:58] LABS: ALBUMIN 4.6 g/dL (3.5-5.0); ALKALINE PHOSPHATASE 229 U/L (38-126); ANION GAP 13 (5-19); ASPARTATE AMINO TRANSFERASE 48 U/L (17-59); BILIRUBIN,DIRECT 1.4 mg/dL (0.0-0.4); BILIRUBIN,TOTAL 1.7 mg/dL (0.2-1.3); BLOOD UREA NITROGEN 28 mg/dL (7-20); CALCIUM 10.1 mg/dL (8.4-10.2); CARBON DIOXIDE 20 mmol/L (22-30); CHLORIDE 104 mmol/L (98-107); GLUCOSE 115 mg/dL (75-110); POTASSIUM 4.8 mmol/L (3.6-5.0)
--- NOTE | 2019-01-04 11:16 | RADIOLOGY REPORT (SQ) ---
EXAM DESCRIPTION: CT HEAD WITHOUT COMPLETED DATE/TIME: 01/04/2019 11:07 am REASON FOR STUDY: headache COMPARISON: None. TECHNIQUE: Axial images acquired through the brain without intravenous contrast. Images reviewed wi th bone, brain and subdural windows. Additional sagittal and coronal reconstructions were generated. Images stored on PACS. All CT scanners at this facility use dose modulation, iterative reconstruction, and/or weight based d osing when appropriate to reduce radiation dose to as low as reasonably achievable (ALARA). [facility]: Dose Right [facility]: CareDose [facility]: Dose Right [facility]: Teradose 4D [facility]: PowerPot RADIATION DOSE: CT Rad equipment meets quality standard of care and radiation dose reduction techniq ues were employed. CTDIvol: 53.2 mGy. DLP: 1070 mGy-cm. mGy. LIMITATIONS: None. FINDINGS: VENTRICLES: Normal size and contour. CEREBRUM: No masses. No hemorrhage. No midline shift. No evidence for acute infarction. Normal gra y/white matter differentiation. No areas of low density in the white matter. CEREBELLUM: No masses. No hemorrhage. No alteration of density. No evidence for acute infarction. EXTRAAXIAL SPACES: No fluid collections. No masses. ORBITS AND GLOBE: No intra- or extraconal masses. Normal contour of globe without masses. CALVARIUM: No fracture. PARANASAL SINUSES: There is a somewhat frothy air-fluid level in the left maxillary sinus. SOFT TISSUES: No mass or hematoma. OTHER: No other significant finding. IMPRESSION: Left maxillary sinus disease with no acute intracranial imaging finding. EVIDENCE OF ACUTE STROKE: NO. COMMENT: Quality ID # [id number]: Final reports with documentation of one or more dose reduction techniques (e.g., Automated exposure control, adjustment of the mA and/or kV according to patient size, use of iterative reconstruction technique) TECHNICAL DOCUMENTATION: JOB ID: [id number] [employer]- All Rights Reserved Reading location - IP/workstation name: [email or web address]
--- NOTE | 2019-01-04 11:22 | RADIOLOGY REPORT (SQ) ---
EXAM DESCRIPTION: CHEST SINGLE VIEW COMPLETED DATE/TIME: 01/04/2019 11:09 am REASON FOR STUDY: dyspnea COMPARISON: 12/26/2018 EXAM PARAMETERS: NUMBER OF VIEWS: One view. TECHNIQUE: Single frontal radiographic view of the chest acquired. RADIATION DOSE: NA LIMITATIONS: None. FINDINGS: LUNGS AND PLEURA: No opacities, masses or pneumothorax. No pleural effusion. MEDIASTINUM AND HILAR STRUCTURES: No masses. Contour normal. HEART AND VASCULAR STRUCTURES: Heart normal in size. Normal vasculature. BONES: No acute findings. HARDWARE: None in the chest. OTHER: No other significant finding. IMPRESSION: NO ACUTE RADIOGRAPHIC FINDING IN THE CHEST. TECHNICAL DOCUMENTATION: JOB ID: [id number] [employer] All Rights Reserved Reading location - IP/workstation name: [email or web address]
--- NOTE | 2019-01-04 12:20 | EKG REPORT ---
SEVERITY:- NORMAL ECG - SINUS RHYTHM : Confirmed by: Baldev Leija MD 04-Jan-2019 12:19:27
[2019-01-04 13:07] VITALS: BP 106/74
== END 2019-01-04 13:21 | disposition home or self-care (01) ==
LOC: ER 09:41
DX: E86.0 Dehydration (principal); R51 Headache; I10 Essential (primary) hypertension; Z88.6 Allergy status to analgesic agent; Z91.040 Latex allergy status; Z85.05 Personal history of malignant neoplasm of liver; Z85.09 Personal history of malignant neoplasm of other digestive organs
CPT/HCPCS: 93005; 36415; 85025; 80053; 84484; 71045; 70450; 93010; J1885; J2270; J2405; J7030; 96361; 96374; 96375; 99285

== ENCOUNTER 2019-02-16 08:47 | Emergency (ER) | payer MEDICAID ==
[2019-02-16] MEDS ORDERED: PROCHLORPERAZINE EDISYLATE INJ 10 MG/2 ML VIAL IV ONE ×2 (09:51→14:48)
[2019-02-16] MEDS ORDERED: NORMAL SALINE 1000 ML 1,000 ML IV ONE ×2 (09:51→14:48)
--- NOTE | 2019-02-16 09:53 | ER Document Report ---
ED GI/ <MARY ALICE GREEN - Last Filed: 02/16/19 18:30> - General Mode of Arrival: Ambulatory Information source: Patient TRAVEL OUTSIDE OF THE [place] IN LAST 30 DAYS: No <NIKKIE HERMAN - Last Filed: 02/17/19 12:12> - General Chief Complaint: Abdominal Pain Stated Complaint: UPPER GI PAIN/RIGHT SIDE Time Seen by Provider: 02/16/19 09:16 Primary Care Provider: OBINNA TALLEY PA [Primary Care Provider] - Follow up as needed Notes: This is a 58-year-old male presenting to the emergency department with right upper quadrant abdominal pain. 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 He was otherwise very healthy and active prior to November. He has had multiple procedures done since that time. On Wednesday he had a biliary drain removed and a hepatic duct stent placed to the right side on Wednesday at [facility] by a Dr. Montana. He states since that time he has had increased excruciating pain to the right upper quadrant. He is not sure if he has had fever but he has had chills. He denies any nausea or vomiting reports significant constipation secondary to his opioid use. He states he takes morphine 15 mg twice daily and also takes oxycodone 10 mg every 3 hours as prescribed by his oncologist. He reports he has had an increase in the usage of his oxycodone due to the severe pain. He reports that he called his fixed income trading vice president, Dr. Montana and his oncologist, Dr. Harvey who directed him to come to the emergency department today. (NIKKIE HERMAN) - Related Data Allergies/Adverse Reactions: codeine Adverse Reaction (Verified 02/16/19 08:52) latex Adverse Reaction (Verified 02/16/19 08:52) Past Medical History - General Information source: Patient - Social History Smoking Status: Former Smoker Frequency of alcohol use: None Drug Abuse: None Family History: Reviewed & Not Pertinent - Past Medical History Cardiac Medical History: Reports: Hx Hypertension Neurological Medical History: Reports: Hx Seizures Renal/ Medical History: Denies: Hx Peritoneal Dialysis Malignancy Medical History: Reports Hx Liver Cancer, Reports Other - Adenocarcinoma GI Medical History: Reports: Hx Gastroesophageal Reflux Disease Past Surgical History: Reports: Other - Biliary drain, hepatic duct stent placement to right and left <NIKKIE HERMAN - Last Filed: 02/17/19 12:12> Review of Systems - Review of Systems Constitutional: Chills EENT: No symptoms reported Cardiovascular: No symptoms reported Respiratory: No symptoms reported Gastrointestinal: Abdominal pain, Nausea, Constipation Genitourinary: No symptoms reported Male Genitourinary: No symptoms reported Musculoskeletal: No symptoms reported Skin: No symptoms reported Hematologic/Lymphatic: No symptoms reported Neurological/Psychological: No symptoms reported <NIKKIE HERMAN - Last Filed: 02/17/19 12:12> Physical Exam <NIKKIE HERMAN - Last Filed: 02/17/19 12:12> - Vital signs Vitals: Pulse Resp BP Pulse Ox 106 H 16 110/81 97 02/16/19 08:53 02/16/19 08:53 02/16/19 08:53 02/16/19 08:53 - Notes Notes: PHYSICAL EXAMINATION: GENERAL: Ill-appearing, cachectic, moderate distress. HEAD: Atraumatic, normocephalic. EYES: Pupils equal round and reactive to light, extraocular movements intact, sclera anicteric, conjunctiva are yellow. ENT: Nares patent, oropharynx clear without exudates. Moist mucous membranes. NECK: Normal range of motion, supple without lymphadenopathy LUNGS: Breath sounds clear to auscultation bilaterally and equal. No wheezes rales or rhonchi. HEART: Regular rate and rhythm without murmurs ABDOMEN: Soft, nondistended abdomen. Significant tenderness to the right upper quadrant. Dressing over recent biliary drain site, site appears to be healing well. Mild erythema but no obvious colitis or infection. Musculoskeletal: Normal range of motion, no pitting or edema. No cyanosis. NEUROLOGICAL: Cranial nerves grossly intact. Normal speech. Normal sensory, motor exams PSYCH: Normal mood, normal affect. SKIN: Jaundice. (NIKKIE HERMAN) Course - Laboratory Result Diagrams: 02/16/19 10:10 02/16/19 10:10 <MARY ALICE GREEN - Last Filed: 02/16/19 18:30> - Laboratory Result Diagrams: 02/16/19 10:10 02/16/19 10:10 <NIKKIE HERMAN - Last Filed: 02/17/19 12:12> - Re-evaluation Re-evalutation: 02/16/19 18:30 [facility] called and apparently the patient is currently on Percocet at home and he recently had 100 pills filled on 07 February. I had the pharmacy puma guzmán the pain medication ordered today. (MARY ALICE GREEN) Microbiology 02/16/19 11:49 Blood Culture - Preliminary Blood NO GROWTH IN 24 HOURS 02/16/19 10:10 Blood Culture - Preliminary Blood NO GROWTH IN 24 HOURS Laboratory 02/16/19 02/16/19 02/16/19 10:10 10:10 10:10 WBC 12.9 H RBC 3.65 L Hgb 11.0 L Hct 32.6 L MCV 89 MCH 30.2 MCHC 33.7 RDW 13.5 Plt Count 263 Lymph % (Auto) 14.2 Roane % (Auto) 10.7 Eos % (Auto) 0.4 Baso % (Auto) 0.5 Absolute Neuts (auto) 9.5 H Absolute Lymphs (auto) 1.8 Absolute Monos (auto) 1.4 Absolute Eos (auto) 0.1 Absolute Basos (auto) 0.1 Seg Neutrophils % 74.2 VBG pH VBG pCO2 VBG HCO3 VBG Base Excess Sodium 137.3 Potassium 3.3 L Chloride 101 Carbon Dioxide 27 Anion Gap 9 BUN 10 Creatinine 0.86 Est GFR ( Amer) > 60 Est GFR (MDRD) Non-Af > 60 Glucose 131 H Lactic Acid 0.7 Calcium 8.5 Total Bilirubin 1.5 H Direct Bilirubin 1.1 H Neonat Total Bilirubin Not Reportable Neonat Direct Bilirubin Not Reportable Neonat Indirect Bili Not Reportable AST 33 ALT 35 Alkaline Phosphatase 323 H Creatine Kinase Total Protein 6.0 L Albumin 3.1 L Lipase 64.0 Urine Color Urine Appearance Urine pH Ur Specific [place] Urine Protein Urine Glucose (UA) Urine Ketones Urine Blood Urine Nitrite Urine Bilirubin Urine Urobilinogen Ur Leukocyte Esterase Urine WBC (Auto) Urine RBC (Auto) U Hyaline Cast (Auto) Squamous Epi Cells Auto Urine Mucus (Auto) Urine Ascorbic Acid 02/16/19 02/16/19 02/16/19 10:10 10:10 11:30 WBC RBC Hgb Hct MCV MCH MCHC RDW Plt Count Lymph % (Auto) Roane % (Auto) Eos % (Auto) Baso % (Auto) Absolute Neuts (auto) Absolute Lymphs (auto) Absolute Monos (auto) Absolute Eos (auto) Absolute Basos (auto) Seg Neutrophils % VBG pH 7.39 VBG pCO2 45.8 VBG HCO3 26.9 VBG Base Excess 1.5 Sodium Potassium Chloride Carbon Dioxide Anion Gap BUN Creatinine Est GFR ( Amer) Est GFR (MDRD) Non-Af Glucose Lactic Acid Calcium Total Bilirubin Direct Bilirubin Neonat Total Bilirubin Neonat Direct Bilirubin Neonat Indirect Bili AST ALT Alkaline Phosphatase Creatine Kinase < 20 L Total Protein Albumin Lipase Urine Color SANTIAGO Urine Appearance CLEAR Urine pH 5.0 Ur Specific [place] 1.024 Urine Protein NEGATIVE Urine Glucose (UA) NEGATIVE Urine Ketones NEGATIVE Urine Blood LARGE H Urine Nitrite NEGATIVE Urine Bilirubin NEGATIVE Urine Urobilinogen 2.0 H Ur Leukocyte Esterase NEGATIVE Urine WBC (Auto) 2 Urine RBC (Auto) 12 U Hyaline Cast (Auto) 1 Squamous Epi Cells Auto 1 Urine Mucus (Auto) OCC Urine Ascorbic Acid NEGATIVE Abdomen/Pelvis CT 02/16/19 09:52 IMPRESSION: Increasing neoplastic disease in the liver. Mild intrahepatic ductal prominence. 02/16/19 13:00 Call placed to patient's fixed income trading vice president at [facility], Dr. Montana. Currently awaiting callback. Patient currently resting, states pain much improved with IV Dilaudid. Family up-to-date on plan of care at this point, will update. 02/16/19 14:12 Spoke with [facility] gastroenterology on-call [employer] for Dr. Montana. Discussed patient's work-up today. She will consult to Dr. Montana and return my phone call again. 02/16/19 14:49 Recommendation is to send patient home on 750 mg of Levaquin daily. He will have close follow-up with GI. He will call them if the pain does not decrease. Patient will be given prescription for 20 tablets of oxycodone 10 mg that he takes at home. 02/16/19 17:17 Notified by nursing staff that patient was still in the department as his IV fluids have just completed. They did ask for one additional dose of IV pain medication, orders placed. 02/16/10 18:40 Call received from daughter to nurse. Nurse came and notified me that apparently the pharmacy called this hospital requesting clarification on prescription that I wrote for oxycodone. They stated that patient had 100 tablets of oxycodone prescribed on 02/07/2019 at their hospital. Another provider received that phone call and instructed the pharmacy to destroy the prescription. I did immediately call the pharmacy and asked them to reissue the prescription. Prior to prescribing the medication I had research the patient in the [facility] aware system. Patient has never received any narcotics prior to the onset of his cancer in November. Patient has had all narcotic prescriptions prescribed by either his GI specialist at [facility] or his oncologist in [place]. All prescriptions have been filled at the [facility]. Patient was prescribed 100 tablets of oxycodone on 02/07/2019. He is supposed to be taking them 1 tablet every 3 hours. He does admit that he has been taking an increased amount to due to his severe pain. He has taken approximately 3 extra tablets per day and he will run out of pain medications prior to being able to follow-up 3 days from now. This patient has significant and rapidly progressing cancer and it is appropriate for him to have adequate pain management. (NIKKIE HERMAN) - Vital Signs Vital signs: Temp Pulse Resp BP Pulse Ox 98.7 F 88 20 118/75 96 02/16/19 15:42 02/16/19 17:00 02/16/19 17:00 02/16/19 17:00 02/16/19 17:00 - Laboratory Laboratory results interpreted by wi: 02/16/19 02/16/19 02/16/19 10:10 10:10 10:10 WBC 12.9 H RBC 3.65 L Hgb 11.0 L Hct 32.6 L Absolute Neuts (auto) 9.5 H Potassium 3.3 L Glucose 131 H Total Bilirubin 1.5 H Direct Bilirubin 1.1 H Alkaline Phosphatase 323 H Creatine Kinase < 20 L Total Protein 6.0 L Albumin 3.1 L Urine Blood Urine Urobilinogen 02/16/19 11:30 WBC RBC Hgb Hct Absolute Neuts (auto) Potassium Glucose Total Bilirubin Direct Bilirubin Alkaline Phosphatase Creatine Kinase Total Protein Albumin Urine Blood LARGE H Urine Urobilinogen 2.0 H Discharge <MARY ALICE GREEN - Last Filed: 02/16/19 18:30> <NIKKIE HERMAN - Last Filed: 02/17/19 12:12> - Discharge Clinical Impression: Adenocarcinoma Abdominal pain Qualifiers: Abdominal location: right upper quadrant Qualified Code(s): R10.11 - Right upper quadrant pain Condition: Stable Disposition: HOME, SELF-CARE Additional Instructions: You were seen in the emergency department for increased right upper quadrant abdominal pain. Your work-up here today was negative other than mildly elevated white blood count. There is no evidence of sepsis or abscess at this time. I have given you a prescription for Levaquin, you were given your first dose today. I spoke with your gastroenterology group. They want you to call them for a repeat ERCP if your symptoms do not improve significantly. Their phone number is [phone]. Prescriptions: Oxycodone HCl/Acetaminophen [Endocet 10-325 mg Tablet] 1 each PO Q6H #20 tablet Levofloxacin [Levaquin 750 mg Tablet] 750 mg PO DAILY #6 tablet Referrals: OBINNA TALLEY PA [Primary Care Provider] - Follow up as needed
[2019-02-16] MEDS: HYDROMORPHONE HCL INJ/PF 2 MG/ML AMPULE IV PRN ×3 (10:08→15:02)
[2019-02-16 10:28] LABS: VENOUS BLOOD BASE EXCESS 1.5 mmol/L; VENOUS BLOOD HCO3 26.9 mmol/L (20-32); VENOUS BLOOD PCO2 45.8 mmHg (35-63); VENOUS BLOOD PH 7.39 (7.30-7.42)
[2019-02-16 10:29] LABS: ABSOLUTE BASOPHILS # (AUTO) 0.1 10^3/uL (0.0-0.2); ABSOLUTE EOSINOPHILS # (AUTO) 0.1 10^3/uL (0.0-0.6); ABSOLUTE LYMPHOCYTES (AUTO) 1.8 10^3/uL (0.5-4.7); ABSOLUTE MONOCYTES (AUTO) 1.4 10^3/uL (0.1-1.4); ABSOLUTE NEUT (AUTO) 9.5 10^3/uL (1.7-8.2); BASOPHILS % (AUTO) 0.5 % (0-2); EOSINOPHILS % (AUTO) 0.4 % (0-6); HEMATOCRIT 32.6 % (37.9-51.0); LYMPHOCYTES % (AUTO) 14.2 % (13-45); MEAN CORPUSCULAR HEMOGLOBIN 30.2 pg (27.0-33.4); MEAN CORPUSCULAR HGB CONC 33.7 g/dL (32.0-36.0); MEAN CORPUSCULAR VOLUME 89 fl (80-97); MONOCYTES % (AUTO) 10.7 % (3-13); PLATELET COUNT 263 10^3/uL (150-450); RED BLOOD COUNT 3.65 10^6/uL (4.35-5.55); RED CELL DISTRIBUTION WIDTH 13.5 % (11.5-14.0); SEGMENTED NEUTROPHILS % (AUTO) 74.2 % (42-78); TOTAL CELLS COUNTED % (AUTO) 100 %; WHITE BLOOD COUNT 12.9 10^3/uL (4.0-10.5)
[2019-02-16 10:48] LABS: ALBUMIN 3.1 g/dL (3.5-5.0); ALKALINE PHOSPHATASE 323 U/L (38-126); ANION GAP 9 (5-19); ASPARTATE AMINO TRANSFERASE 33 U/L (17-59); BILIRUBIN,DIRECT 1.1 mg/dL (0.0-0.4); BILIRUBIN,TOTAL 1.5 mg/dL (0.2-1.3); BLOOD UREA NITROGEN 10 mg/dL (7-20); CALCIUM 8.5 mg/dL (8.4-10.2); CARBON DIOXIDE 27 mmol/L (22-30); CHLORIDE 101 mmol/L (98-107); GLUCOSE 131 mg/dL (75-110); POTASSIUM 3.3 mmol/L (3.6-5.0)
--- NOTE | 2019-02-16 11:56 | RADIOLOGY REPORT (SQ) ---
EXAM DESCRIPTION: CT ABD/PELVIS WITH IV ONLY COMPLETED DATE/TIME: 02/16/2019 11:18 am REASON FOR STUDY: biliary stent placement 02/13, pain, adenocarcinoma COMPARISON: 12/26/2018 TECHNIQUE: CT scan of the abdomen and pelvis performed using helical scanning technique with dynamic intravenous contrast injection. No oral contrast. Images reviewed with lung, soft tissue, and bone windows. Reconstructed coronal and sagittal MPR images reviewed. Delayed images for evaluation of the urinary system also acquired. All images stored on PACS. All CT scanners at this facility use dose modulation, iterative reconstruction, and/or weight based d osing when appropriate to reduce radiation dose to as low as reasonably achievable (ALARA). [facility]: Dose Right [facility]: CareDose [facility]: Dose Right [facility]: Teradose 4D [facility]: Scientific Revenue CONTRAST TYPE AND DOSE: contrast/concentration: Isovue 350.00 mg/ml; Total Contrast Delivered: 75.0 ml; Total Saline Delivered: 67.0 ml RENAL FUNCTION: BUN 10 creatinine 0.86 RADIATION DOSE: CT Rad equipment meets quality standard of care and radiation dose reduction techniq ues were employed. CTDIvol: NaN - NaN mGy. DLP: 0 mGy-cm.. LIMITATIONS: None. FINDINGS: LOWER CHEST: Pulmonary vascular congestion. Mild dependent atelectasis in the right lower lobe. LIVER: Large hepatic mass anteriorly. Additional less well-defined 5 cm mass posteriorly in the righ t lobe. New 3 cm mass in the inferior right lobe. Biliary stent is present. Mild intrahepatic duct al prominence. SPLEEN: Normal size. No focal lesions. PANCREAS: No masses. No significant calcifications. No adjacent inflammation or peripancreatic fluid collections. Pancreatic duct not dilated. GALLBLADDER: Surgically absent. ADRENAL GLANDS: No significant masses or asymmetry. RIGHT KIDNEY AND URETER: No solid masses. No significant calcifications. No hydronephrosis or hyd roureter. LEFT KIDNEY AND URETER: No solid masses. No significant calcifications. No hydronephrosis or hydr oureter. AORTA AND VESSELS: No aneurysm. No dissection. Renal arteries, SMA, celiac without stenosis. RETROPERITONEUM: No retroperitoneal adenopathy, hemorrhage or masses. BOWEL AND PERITONEAL CAVITY: No masses or inflammatory changes. No free fluid or peritoneal masses. APPENDIX: Normal. PELVIS: No mass. No free fluid. Normal bladder. ABDOMINAL WALL: No masses. No hernias. BONES: No significant or acute findings. OTHER: No other significant finding. IMPRESSION: Increasing neoplastic disease in the liver. Mild intrahepatic ductal prominence. TECHNICAL DOCUMENTATION: JOB ID: [id number] Quality ID # [id number]: Final reports with documentation of one or more dose reduction techniques (e.g., Au tomated exposure control, adjustment of the mA and/or kV according to patient size, use of iterative reconstruction technique) 2010 [employer]- All Rights Reserved Reading location - IP/workstation name: [email or web address]
[2019-02-16 12:08] LABS: APPEARANCE,URINE CLEAR; BILIRUBIN,URINE NEGATIVE (NEGATIVE); COLOR,URINE AMBER; GLUCOSE, URINE NEGATIVE (NEGATIVE); KETONES,URINE NEGATIVE (NEGATIVE); LEUKOCYTE ESTERASE,URINE NEGATIVE (NEGATIVE); NITRITE,URINE NEGATIVE (NEGATIVE); PROTEIN,URINE NEGATIVE (NEGATIVE); URINE SPECIFIC GRAVITY 1.024
[2019-02-16] MEDS ORDERED: LEVOFLOXACIN 750 MG TABLET PO ONE (14:49)
[2019-02-16] MEDS ORDERED: HYDROMORPHONE HCL INJ/PF 2 MG/ML AMPULE IV ONE (17:16)
[2019-02-16 17:34] VITALS: BP 118/75
== END 2019-02-16 17:34 | disposition home or self-care (01) ==
LOC: ER 08:47
DX: C23 Malignant neoplasm of gallbladder (principal); C22.7 Other specified carcinomas of liver; K59.03 Drug induced constipation; T40.2X5A Adverse effect of other opioids, initial encounter; Z91.14 Patient's other noncompliance with medication regimen; R10.11 Right upper quadrant pain; R68.83 Chills (without fever); I10 Essential (primary) hypertension; R11.0 Nausea; Z79.891 Long term (current) use of opiate analgesic; Z87.891 Personal history of nicotine dependence; Z98.890 Other specified postprocedural states
CPT/HCPCS: 96376; 99284; 96361; 96374; 96375; 36415; 87040; 82550; 83605; 83690; 85025; 87077; 80053; 81001; 82803; 74177; J1170; J0780; J7030; J3490; 87186

== ENCOUNTER 2019-02-27 12:39 | Inpatient (IN) | payer MEDICAID ==
[2019-02-27] MEDS ORDERED: ONDANSETRON HCL INJ/PF 4 MG/2 ML SDV IV ONE (13:27)
[2019-02-27] MEDS ORDERED: NORMAL SALINE 1000 ML 1,000 ML IV ONE ×2 (13:27→14:30)
[2019-02-27] MEDS ORDERED: MECLIZINE HCL 25 MG TABLET PO ONE (13:27)
[2019-02-27 13:43] LABS: ALBUMIN 2.6 g/dL (3.5-5.0); ALKALINE PHOSPHATASE 431 U/L (38-126); ANION GAP 11 (5-19); ASPARTATE AMINO TRANSFERASE 36 U/L (17-59); BILIRUBIN,DIRECT 0.8 mg/dL (0.0-0.4); BILIRUBIN,TOTAL 0.9 mg/dL (0.2-1.3); BLOOD UREA NITROGEN 34 mg/dL (7-20); CALCIUM 7.9 mg/dL (8.4-10.2); CARBON DIOXIDE 25 mmol/L (22-30); CHLORIDE 96 mmol/L (98-107); CREATINE KINASE 26 U/L (55-170); GLUCOSE 138 mg/dL (75-110); POTASSIUM 4.6 mmol/L (3.6-5.0); TOTAL PROTEIN 5.7 g/dL (6.3-8.2)
[2019-02-27 13:44] LABS: HEMATOCRIT 30.1 % (37.9-51.0); MEAN CORPUSCULAR HEMOGLOBIN 29.3 pg (27.0-33.4); MEAN CORPUSCULAR HGB CONC 33.2 g/dL (32.0-36.0); MEAN CORPUSCULAR VOLUME 89 fl (80-97); PLATELET COUNT 570 10^3/uL (150-450); RED CELL DISTRIBUTION WIDTH 14.7 % (11.5-14.0); WHITE BLOOD COUNT 23.1 10^3/uL (4.0-10.5)
--- NOTE | 2019-02-27 13:52 | ER Document Report ---
Entered by ODILON SMART SCRIBE 02/27/19 9502 Acting as scribe for:ZAINAB WHITE MD ED General - General Chief Complaint: Trouble Walking Stated Complaint: WEAKNESS Time Seen by Provider: 02/27/19 13:07 Notes: Patient is a 58 year old male that presents to the emergency department today with complaints of nausea/vomiting, fevers and dizziness for the last two days. Patient states he has no pain associated with the above mentioned symptoms. Patient had a fall prior to arrival when getting out of his recliner. Family member at bedside states she went to the patient's house to pick him up for his oncology appointment when this fall occurred. Patient states he is not sure if the fall occurred due to general weakness or his increasing dizziness with head movement. 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 Patient has had multiple surgeries, he has not started any radiation or chemotherapy at this time. By history, they are trying to get his strength buil t back up first. The patient reports that he has not been able to eat or drink much because he is always feeling full. He thinks this is due to the constipation he suffers from all the pain medication he takes. He does take MiraLAX on a stool softener, states he has a bowel movement about every other day. Patient reports that he last urinated sometime yesterday. TRAVEL OUTSIDE OF THE [place] IN LAST 30 DAYS: No - Related Data Allergies/Adverse Reactions: codeine Adverse Reaction (Verified 02/16/19 08:52) latex Adverse Reaction (Verified 02/16/19 08:52) Past Medical History - General Information source: Patient - Social History Smoking Status: Former Smoker Frequency of alcohol use: None Drug Abuse: Marijuana Lives with: Family Family History: Reviewed & Not Pertinent Patient has suicidal ideation: No Patient has homicidal ideation: No - Past Medical History Cardiac Medical History: Reports: Hx Hypertension Neurological Medical History: Reports: Hx Seizures Malignancy Medical History: Reports Hx Liver Cancer GI Medical History: Reports: Hx Gastroesophageal Reflux Disease Past Surgical History: Reports: Hx Orthopedic Surgery - right arm, Other - Biliary drain, hepatic duct stent placement to right and left since removed Review of Systems - Review of Systems Constitutional: Fever - 101.9 yesterday EENT: No symptoms reported Cardiovascular: See HPI, Dizziness Respiratory: No symptoms reported Gastrointestinal: See HPI, Nausea, Vomiting. denies: Abdominal pain Genitourinary: No symptoms reported Male Genitourinary: No symptoms reported Musculoskeletal: No symptoms reported Skin: No symptoms reported Hematologic/Lymphatic: No symptoms reported Neurological/Psychological: No symptoms reported -: Yes All other systems reviewed and negative Physical Exam - Vital signs Vitals: Temp Pulse Resp BP Pulse Ox 98.3 F 89 14 104/67 98 02/27/19 12:46 02/27/19 12:46 02/27/19 12:46 02/27/19 12:46 02/27/19 12:46 - Notes Notes: Physical Exam: General: Alert, does not appear jaundiced. HEENT: Normocephalic. Atraumatic. PERRL. Extraocular movements intact. Oropharynx clear. Dry mucous membranes. Lateral gaze nystagmus bilaterally. Neck: Supple. Non-tender. Respiratory: No respiratory distress. Clear and equal breath sounds bilaterally. Cardiovascular: Regular rate and rhythm. Abdominal: Normal Inspection. Non-tender. No distension. Normal Bowel Sounds. Back: No gross abnormalities. Extremities: Moves all four extremities. Upper extremities: Normal inspection. Normal ROM. Lower extremities: Normal inspection. No edema. Normal ROM. Neurological: Normal cognition. AAOx4. Normal speech. Psychological: Normal affect. Normal Mood. Skin: Warm. Dry. Nailbeds are slightly pale. Course - Vital Signs Vital signs: Temp Pulse Resp BP Pulse Ox 98.3 F 89 14 104/67 98 02/27/19 12:46 02/27/19 12:46 02/27/19 12:46 02/27/19 12:46 02/27/19 12:46 - Laboratory Result Diagrams: 02/27/19 12:50 02/27/19 12:50 Laboratory results interpreted by me: 02/27/19 02/27/19 12:50 12:50 WBC 23.1 H RBC 3.40 L Hgb 10.0 L Hct 30.1 L RDW 14.7 H Plt Count 570 H Seg Neuts % (Manual) 85 H Lymphocytes % (Manual) 8 L Abs Neuts (Manual) 19.6 H Abs Monocytes (Manual) 1.6 H Sodium 131.5 L Chloride 96 L BUN 34 H Creatinine 4.08 H Est GFR ( Amer) 18 L Est GFR (MDRD) Non-Af 15 L Glucose 138 H Calcium 7.9 L Direct Bilirubin 0.8 H Alkaline Phosphatase 431 H Creatine Kinase 26 L Total Protein 5.7 L Albumin 2.6 L - Diagnostic Test Radiology reviewed: Image reviewed, Reports reviewed - Chest x-ray shows bibasilar atelectasis. KUB shows a few mildly dilated loops of small bowel in the left abdomen with gas in the colon. - EKG Interpretation by Me EKG shows normal: Sinus rhythm, Dewar, Intervals, QRS Complexes, ST-T Waves Rate: Normal - 87 Rhythm: NSR Voltage: Decreased voltage When compared to previous EKG there are: No significant change Critical Care Note - Critical Care Note Total time excluding time spent on procedures (mins): 35 Discharge - Discharge Clinical Impression: Vertigo, Acute kidney injury, Dehydration, Liver metastases Leukocytosis Qualifiers: Leukocytosis type: unspecified Qualified Code(s): D72.829 - Elevated white blood cell count, unspecified Condition: Good Disposition: ADMITTED INPATIENT Admitting Provider: Angel (Hospitalist) Unit Admitted: Telemetry Scribe Attestation: 02/27/19 14:18 I personally performed the services described in the documentation, reviewed and edited the documentation which was dictated to the scribe in my presence, and it accurately records my words and actions. I personally performed the services described in the documentation, reviewed and edited the documentation which was dictated to the scribe in my presence, and it accurately records my words and actions.
[2019-02-27] MEDS ORDERED: PROCHLORPERAZINE EDISYLATE INJ 10 MG/2 ML VIAL IV ONE (13:54)
[2019-02-27 14:17] LABS: ABSOLUTE LYMPHOCYTES# (MANUAL) 1.8 10^3/uL (0.5-4.7); ABSOLUTE MONOCYTES # (MANUAL) 1.6 10^3/uL (0.1-1.4); BASOPHILS % (MANUAL) 0 % (0-2); EOSINOPHILS % (MANUAL) 0 % (0-6); LYMPHOCYTES % (MANUAL) 8 % (13-45); MONOCYTES % (MANUAL) 7 % (3-13); SEGMENTED NEUTROPHILS % (MAN) 85 % (42-78); TOTAL CELLS COUNTED 100
[2019-02-27 14:18] LABS: PLATELET COMMENT INCREASED
[2019-02-27] MEDS ORDERED: PIPERACILLIN/TAZOBACTAM 3.375 GM VIAL IV ONE (14:39)
--- NOTE | 2019-02-27 15:13 | RADIOLOGY REPORT (SQ) ---
EXAM DESCRIPTION: CHEST SINGLE VIEW COMPLETED DATE/TIME: 02/27/2019 3:02 pm REASON FOR STUDY: Leukocytosis, dehydration COMPARISON: None. EXAM PARAMETERS: NUMBER OF VIEWS: One view. TECHNIQUE: Single frontal radiographic view of the chest acquired. RADIATION DOSE: NA LIMITATIONS: None. FINDINGS: LUNGS AND PLEURA: Trace linear right basilar opacities without dense consolidation. No pl eural effusion or pneumothorax P MEDIASTINUM AND HILAR STRUCTURES: No masses. Contour normal. HEART AND VASCULAR STRUCTURES: Heart normal in size. Normal vasculature. BONES: No acute findings. HARDWARE: None in the chest. OTHER: No other significant finding. IMPRESSION: Trace linear bibasilar opacities, likely atelectasis or scarring. No dense consolidatio n. No significant effusion. TECHNICAL DOCUMENTATION: JOB ID: [id number] [employer]- All Rights Reserved Reading location - IP/workstation name: [email or web address]
--- NOTE | 2019-02-27 15:27 | RADIOLOGY REPORT (SQ) ---
EXAM DESCRIPTION: KUB/ABDOMEN (SINGLE VIEW) COMPLETED DATE/TIME: 02/27/2019 3:02 pm REASON FOR STUDY: Constipation, dehydration, acute renal failure COMPARISON: 02/16/2019 NUMBER OF VIEWS: One view. TECHNIQUE: Supine radiographic image of the abdomen acquired. LIMITATIONS: None. FINDINGS: BOWEL GAS PATTERN: Few loops of mildly dilated small bowel within the left abdomen measuri ng up to 3.5 cm. Gas noted throughout the colon. CALCIFICATIONS: No suspicious calcifications. SOFT TISSUES: No gross mass or suggestion of organomegaly. HARDWARE: Pigtail catheter overlies left pelvis. CBD stent in place. Additional stent overlies expe cted location of the descending duodenum. BONES: No acute fracture. No worrisome bone lesions. OTHER: No other significant finding. IMPRESSION: 1. Few nonspecific loops of mildly dilated small bowel within the left abdomen measure 3.5 cm with gas noted throughout the colon. 2. Unchanged position of the biliary duct stents. Pigtail catheter overlies pelvis. TECHNICAL DOCUMENTATION: JOB ID: [id number] [employer]- All Rights Reserved Reading location - IP/workstation name: [email or web address]
[2019-02-27] MEDS ORDERED: ONDANSETRON HCL INJ/PF 4 MG/2 ML SDV IV PRN (15:46)
--- NOTE | 2019-02-27 16:31 | PDOC H&P ---
History of Present Illness Admission Date/PCP: MADIHA HARMAN History of Present Illness: JOANNA PUENTE is a 58 year old male with a history of gallbladder cancer status post biliary stenting with a drain who has not yet started chemo because he said he is not yet strong enough for it, and he comes in today with a history of nausea, weakness, and decreased p.o. intake for a couple of days. He says that it started 2 days ago with some vomiting. He said his oral intake has not been very good and he has not had a meal in about a week. He says his water intake has not been good either. He says he does not think he urinated yesterday. He said he had a fever yesterday but took some Tylenol has not been febrile since. He has had no chest pain or shortness of breath. No cough or sputum production. No sore throat. No nasal congestion. No dysuria. No diarrhea. The only thing that is bothering him is some right-sided abdominal pain. He had an elevated BUN and creatinine and feels a little better after some IV fluids but still has not urinated. He is being admitted for some IV fluids and further evaluation of his abdominal pain, primarily to make sure he does not have a recurrent fluid collection or infection in the abdomen. Past Medical History Cardiac Medical History: Reports: Hypertension Neurological Medical History: Reports: Seizures Malignancy Medical History: Reports: Liver Cancer GI Medical History: Reports: Gastroesophageal Reflux Disease Past Surgical History Past Surgical History: Reports: Orthopedic Surgery - right arm, Other - Biliary drain, hepatic duct stent placement to right and left since removed Social History Lives with: Family Smoking Status: Former Smoker Frequency of Alcohol Use: None Hx Recreational Drug Use: No Drugs: None Hx Prescription Drug Abuse: No Family History Family History: Reviewed & Not Pertinent Parental Family History Reviewed: Yes - Hypertension Children Family History Reviewed: Unknown Sibling(s) Family History Reviewed.: Unknown Medication/Allergy Home Medications: Carbamazepine [Tegretol 200 mg Tablet] 800 mg PO QHS 12/26/18 Oxycodone HCl [Oxy-Ir 5 mg Tablet] 10 mg PO Q4HP PRN 12/26/18 Pantoprazole Sodium [Protonix [address] Tablet] 40 mg PO QAM 12/26/18 Phenytoin Sodium Extended [Dilantin 100 mg Capsule.er] 400 mg PO QHS 12/26/18 Ranitidine HCl [Zantac] 150 mg PO BID 12/26/18 Sennosides [Senna] 8.6 mg PO HSP PRN 12/26/18 Ursodiol [Actigall 300 mg Capsule] 300 mg PO Q12 12/26/18 Acetaminophen [Tylenol 325 mg Tablet] 325 mg PO Q4HP PRN tablet 12/27/18 Ondansetron [Zofran Odt 4 mg Tablet] 1 - 2 tab PO Q4HP PRN #20 tab.rapdis 12/28/18 Promethazine HCl [Promethegan] 25 mg RC Q6HP PRN #4 supp.rect 12/28/18 Levofloxacin [Levaquin 750 mg Tablet] 750 mg PO DAILY #6 tablet 02/16/19 Oxycodone HCl/Acetaminophen [Endocet 10-325 mg Tablet] 1 each PO Q6H #20 tablet 02/16/19 Allergies/Adverse Reactions: codeine Adverse Reaction (Verified 02/16/19 08:52) latex Adverse Reaction (Verified 02/16/19 08:52) Review of Systems All systems: reviewed and no additional remarkable complaints except as stated - All systems were reviewed and were negative except as noted in the HPI Physical Exam Vital Signs: Temp Pulse Resp BP Pulse Ox 98.3 F 89 14 104/67 98 02/27/19 12:46 02/27/19 12:46 02/27/19 12:46 02/27/19 12:46 02/27/19 12:46 Intake & Output 02/26/19 02/27/19 02/28/19 06:59 06:59 06:59 Intake Total 1999 Balance 1999 Weight 64.455 kg General appearance: PRESENT: no acute distress, cooperative, disheveled, thin Head exam: PRESENT: atraumatic, normocephalic Eye exam: PRESENT: EOMI, PERRLA. ABSENT: conjunctival injection, nystagmus, scleral icterus Ear exam: PRESENT: normal external ear exam Mouth exam: PRESENT: dry mucosa, neck supple Teeth exam: PRESENT: poor dentation Throat exam: ABSENT: post pharyngeal erythema Neck exam: PRESENT: full ROM. ABSENT: carotid bruit, JVD, lymphadenopathy, meningismus, tenderness, thyromegaly Respiratory exam: PRESENT: clear to auscultation deysi, symmetrical, unlabored. ABSENT: accessory muscle use, chest wall tenderness, crackles, prolonged expir atory phas, rhonchi, tachypnea, wheezes Cardiovascular exam: PRESENT: RRR, +S1, +S2 Pulses: PRESENT: normal carotid pulses Vascular exam: PRESENT: normal capillary refill GI/Abdominal exam: PRESENT: normal bowel sounds, soft, tenderness - Right upper quadrant down towards the right mid abdomen. ABSENT: distended, guarding, rebound Extremities exam: ABSENT: clubbing, pedal edema Musculoskeletal exam: PRESENT: normal inspection. ABSENT: deformity Neurological exam: PRESENT: alert, awake, oriented to person, oriented to place, oriented to situation, CN II-XII grossly intact. ABSENT: motor sensory deficit Psychiatric exam: PRESENT: appropriate affect, normal mood Skin exam: PRESENT: dry, warm Results Laboratory Results: 02/27/19 12:50 02/27/19 12:50 02/27/19 02/27/19 12:50 12:50 WBC 23.1 H RBC 3.40 L Hgb 10.0 L Hct 30.1 L MCV 89 MCH 29.3 MCHC 33.2 RDW 14.7 H Plt Count 570 H Seg Neutrophils % Not Reportable Sodium 131.5 L Potassium 4.6 Chloride 96 L Carbon Dioxide 25 Anion Gap 11 BUN 34 H Creatinine 4.08 H Est GFR ( Amer) 18 L Glucose 138 H Calcium 7.9 L Total Bilirubin 0.9 AST 36 Alkaline Phosphatase 431 H Total Protein 5.7 L Albumin 2.6 L 02/27/19 12:50 Creatine Kinase 26 L Impressions: Chest X-Ray 02/27/19 14:43 IMPRESSION: Trace linear bibasilar opacities, likely atelectasis or scarring. No dense consolidation. No significant effusion. KUB X-Ray 02/27/19 14:43 IMPRESSION: 1. Few nonspecific loops of mildly dilated small bowel within the left abdomen measure 3.5 cm with gas noted throughout the colon. 2. Unchanged position of the biliary duct stents. Pigtail catheter overlies pelvis. 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 Is this a current diagnosis for this admission?: Yes (4) Dehydration Is this a current diagnosis for this admission?: Yes - Time Time Spent with patient: 35 or more minutes - Inpatient Certification Based on my medical assessment, after consideration of the patient's comorbidities, presenting symptoms, or acuity I expect that the services needed warrant INPATIENT care.: Yes I certify that my determination is in accordance with my understanding of Medicare's requirements for reasonable and necessary INPATIENT services [42 CFR 412.3e].: Yes Medical Necessity: Significant Comorbidiites Make Outpatient Treatment Too Risky, Need Close Monitoring Due to Risk of Patient Decompensation, Need For IV Fluids, Need For Continuous Telemetry Monitoring, Risk of Complication if Not Cared For in Hospital, Risk of Diagnosis Which Will Require Inpatient Eval/Care/Monitoring
[2019-02-27 16:49] LABS: PHENYTOIN 9.7 ug/mL (10.0-20.0)
[2019-02-27 17:34] LABS: AMORPHOUS SEDIMENT,URINE TRACE /HPF; APPEARANCE,URINE CLOUDY; BILIRUBIN,URINE NEGATIVE (NEGATIVE); GLUCOSE, URINE NEGATIVE (NEGATIVE); KETONES,URINE NEGATIVE (NEGATIVE); LEUKOCYTE ESTERASE,URINE NEGATIVE (NEGATIVE); NITRITE,URINE NEGATIVE (NEGATIVE); PROTEIN,URINE 100 mg/dL (NEGATIVE); URINE SPECIFIC GRAVITY 1.021; UROBILINOGEN,URINE NEGATIVE mg/dL (<2.0)
[2019-02-27 17:37] LABS: COLOR,URINE YELLOW
[2019-02-27] MEDS: NORMAL SALINE 1000 ML 1,000 ML IV PRN (18:15)
--- NOTE | 2019-02-27 18:22 | RADIOLOGY REPORT (SQ) ---
EXAM DESCRIPTION: CT ABD/PELVIS NO ORAL OR IV COMPLETED DATE/TIME: 02/27/2019 4:35 pm REASON FOR STUDY: RUQ abdominal pain COMPARISON: 12/19/2018 TECHNIQUE: CT scan of the abdomen and pelvis performed without intravenous or oral contrast. Images reviewed with lung, soft tissue, and bone windows. Reconstructed coronal and sagittal MPR images revi ewed. All images stored on PACS. All CT scanners at this facility use dose modulation, iterative reconstruction, and/or weight based d osing when appropriate to reduce radiation dose to as low as reasonably achievable (ALARA). [facility]: Dose Right [facility]: CareDose [facility]: Dose Right [facility]: Teradose 4D [facility]: Smart WineNice RADIATION DOSE: CT Rad equipment meets quality standard of care and radiation dose reduction techniq ues were employed. CTDIvol: 8.0 mGy. DLP: 468 mGy-cm.mGy. LIMITATIONS: None. FINDINGS: LOWER CHEST: No significant findings. No nodules or infiltrates. NON-CONTRASTED LIVER, SPLEEN, ADRENALS: Prior TIPS procedure versus biliary stent. Persistent ill-de fined area of decreased attenuation in the right lobe of the liver. A 2nd, ill-defined area of decre ased attenuation more inferiorly in the right lobe of the liver. See images 34 and 35. Spleen is un remarkable. No adrenal mass. PANCREAS: No masses. No peripancreatic inflammatory changes. GALLBLADDER: Not identified. RIGHT KIDNEY AND URETER: No suspicious masses. Assessment limited by lack of IV contrast. No signif icant calcifications. No hydronephrosis or hydroureter. LEFT KIDNEY AND URETER: No suspicious masses. Assessment limited by lack of IV contrast. No signifi cant calcifications. No hydronephrosis or hydroureter. AORTA AND RETROPERITONEUM: No aneurysm. No retroperitoneal masses or adenopathy. BOWEL AND PERITONEAL CAVITY: There appears to be mild thickening of the wall of a segment of the desc ending colon. A segment of a pigtail catheter is present in the sigmoid colon. This does not appear to extend through the abdominal wall. APPENDIX: Normal. PELVIS, BLADDER, AND ABDOMINAL WALL:No abnormal masses. No free fluid. Bladder normal. BONES: No significant findings. OTHER: No other significant finding. IMPRESSION: 1. Prior TIPS procedure versus biliary stent. There are 2 ill-defined areas of decreas ed attenuation in the right lobe of the liver slightly concerning for neoplasm. Consider ultrasound. 2. There is thickening of the wall of a segment of the ascending colon. Is there history of inflamm atory bowel disease? 3. There is a segment of a pigtail catheter in the sigmoid colon. COMMENT: Quality ID # [id number]: Final reports with documentation of one or more dose reduction techniques (e.g., Automated exposure control, adjustment of the mA and/or kV according to patient size, use of iterative reconstruction technique) TECHNICAL DOCUMENTATION: JOB ID: [id number] [employer]- All Rights Reserved Reading location - IP/workstation name: [email or web address]
[2019-02-27] MEDS ORDERED: URSODIOL 300 MG CAPSULE PO ONE (23:45)
[2019-02-27] MEDS ORDERED: PHENYTOIN SODIUM EXTENDED 100 MG CAPSULE PO ONE (23:45)
[2019-02-27] MEDS ORDERED: CARBAMAZEPINE 200 MG TABLET PO ONE (23:45)
[2019-02-27] MEDS ORDERED: OXYCODONE HCL IR 5 MG TABLET PO PRN (23:53)
[2019-02-28] MEDS ORDERED: SENNOSIDES/DOCUSATE 8.6-50 MG 1 EACH TABLET PO PRN (00:09)
[2019-02-28] MEDS: HEPARIN SOD (PORCINE) 5,000 UNIT/ML 1 ML VIAL SUBCUT SCH ×4 (00:18→22:09)
--- NOTE | 2019-02-28 00:29 | EKG REPORT ---
SEVERITY:- OTHERWISE NORMAL ECG - SINUS RHYTHM LOW VOLTAGE IN FRONTAL LEADS : Confirmed by: Katerin Palomares MD 28-Feb-2019 00:28:24
[2019-02-28 03:35] LABS: HEMATOCRIT 25.9 % (37.9-51.0); HEMOGLOBIN 8.7 g/dL (13.5-17.0); MEAN CORPUSCULAR HEMOGLOBIN 29.6 pg (27.0-33.4); MEAN CORPUSCULAR HGB CONC 33.7 g/dL (32.0-36.0); MEAN CORPUSCULAR VOLUME 88 fl (80-97); PLATELET COUNT 522 10^3/uL (150-450); RED BLOOD COUNT 2.94 10^6/uL (4.35-5.55); RED CELL DISTRIBUTION WIDTH 14.5 % (11.5-14.0); WHITE BLOOD COUNT 19.1 10^3/uL (4.0-10.5)
[2019-02-28 03:51] LABS: ALBUMIN 2.4 g/dL (3.5-5.0); ALKALINE PHOSPHATASE 403 U/L (38-126); ANION GAP 10 (5-19); ASPARTATE AMINO TRANSFERASE 34 U/L (17-59); BILIRUBIN,DIRECT 0.9 mg/dL (0.0-0.4); BLOOD UREA NITROGEN 36 mg/dL (7-20); CALCIUM 7.6 mg/dL (8.4-10.2); CARBON DIOXIDE 22 mmol/L (22-30); CHLORIDE 102 mmol/L (98-107); GLUCOSE 105 mg/dL (75-110); POTASSIUM 4.7 mmol/L (3.6-5.0); TOTAL PROTEIN 5.3 g/dL (6.3-8.2)
[2019-02-28] MEDS: NORMAL SALINE 1000 ML 1,000 ML IV PRN ×2 (04:43→15:58)
--- NOTE | 2019-02-28 08:47 | PDOC CONSULTATION ---
Consultation Consult Date: 02/28/19 Provider Consulted: LULA GARCIA Consult reason:: Hematology/Oncology consultation was requested for patient with gall bladder cancer. History of Present Illness Admission Date/PCP: 02/27/19 16:20 MADIHA HARMAN History of Present Illness: JOANNA PUENTE is a 58 year old male who states that on December 09, 2018 he underwent ERCP and biopsy at [facility] and was diagnosed with gall bladder cancer with mets to the liver. He has been seeing Dr. Sofía Bass in [place] but has not yet been started on active treatment, as he has been too weak. He did have stents placed for the blockages in his gall bladder. He was scheduled to see his oncologist yesterday, but was too weak to make it to the office. He has not been able to eat anything for a week and drinks very little at home. On arrival, patient was dehydrated with renal insufficiency. He has been started on fluids and today, he states that he has not yet been up to see if he is feeling any better. He has increased anxiety and is worried about his medications, doctor bills, etc. Past Medical History Cardiac Medical History: Reports: Hypertension Neurological Medical History: Reports: Seizures Malignancy Medical History: Reports: Other - Gall Bladder cancer with mets to the liver. 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 Lives with: Family Smoking Status: Former Smoker Last Time Smoked: 3 years ago. Frequency of Alcohol Use: None Hx Recreational Drug Use: No Drugs: None Hx Prescription Drug Abuse: No Past Social History Note: Not . 2 children. 1 dog. Family History Family History: Genetic testing has not yet been performed. Parental Family History Reviewed: Yes - Father age 63 with [place]. Mother living at age 84 with CAD, Breast cance Children Family History Reviewed: No Sibling(s) Family History Reviewed.: Yes - Sister with breast cancer. Brother with CAD. Medication/Allergy Home Medications: Carbamazepine [Tegretol 200 mg Tablet] 400 mg PO QHS 02/27/19 Citalopram Hydrobromide [Citalopram HBr] 10 mg PO QHS 02/27/19 Morphine Sulfate [Morphine Sulfate ER] 10 mg PO Q12 02/27/19 Oxycodone HCl [Oxycodone HCl 10 MG Tablet] 10 mg PO Q3HP PRN 02/27/19 Pantoprazole Sodium [Protonix [address] Tablet] 40 mg PO QHS 02/27/19 Phenytoin Sodium Extended [Dilantin 100 mg Capsule.er] 200 mg PO QHS 02/27/19 Potassium Chloride [Klor-Con M20] 20 meq PO DAILY 02/27/19 Allergies/Adverse Reactions: codeine Adverse Reaction (Verified 02/16/19 08:52) latex Adverse Reaction (Verified 02/16/19 08:52) Review of Systems Constitutional: PRESENT: fatigue, fever(s). ABSENT: headache(s) Eyes: ABSENT: visual disturbances Ears: ABSENT: hearing changes Nose, Mouth, and Throat: ABSENT: sore throat Cardiovascular: ABSENT: chest pain Respiratory: ABSENT: dyspnea Gastrointestinal: PRESENT: heartburn, nausea Genitourinary: PRESENT: other - Dark urine. ABSENT: dysuria Musculoskeletal: PRESENT: back pain Integumentary: ABSENT: rash Neurological: PRESENT: dizziness, weakness Psychiatric: PRESENT: anxiety Physical Exam Vital Signs: Temp Pulse Resp BP Pulse Ox 99.4 F 86 17 113/68 96 02/28/19 03:00 02/28/19 07:00 02/28/19 03:00 02/28/19 03:00 02/28/19 03:00 Intake & Output 02/27/19 02/28/19 03/01/19 06:59 06:59 06:59 Intake Total 3300 Balance 3300 Weight 66.4 kg General appearance: PRESENT: no acute distress, thin, well-developed Exam: 58 year old male. Head exam: PRESENT: normocephalic Eye exam: PRESENT: EOMI Mouth exam: PRESENT: tongue midline Neck exam: ABSENT: lymphadenopathy, tenderness Respiratory exam: PRESENT: clear to auscultation deysi, unlabored Cardiovascular exam: PRESENT: RRR GI/Abdominal exam: PRESENT: normal bowel sounds, soft, tenderness - epigastric Extremities exam: ABSENT: pedal edema Musculoskeletal exam: PRESENT: normal inspection Neurological exam: PRESENT: alert, awake, oriented to person, oriented to place, oriented to time, oriented to situation Psychiatric exam: PRESENT: appropriate affect Skin exam: PRESENT: normal color Results Laboratory Results: 02/28/19 03:11 02/28/19 03:11 02/27/19 02/27/19 02/27/19 12:50 12:50 15:27 WBC 23.1 H RBC 3.40 L Hgb 10.0 L Hct 30.1 L MCV 89 MCH 29.3 MCHC 33.2 RDW 14.7 H Plt Count 570 H Seg Neutrophils % Not Reportable Sodium 131.5 L Potassium 4.6 Chloride 96 L Carbon Dioxide 25 Anion Gap 11 BUN 34 H Creatinine 4.08 H Est GFR ( Amer) 18 L Glucose 138 H Lactic Acid 1.1 Calcium 7.9 L Total Bilirubin 0.9 AST 36 Alkaline Phosphatase 431 H Ammonia Total Protein 5.7 L Albumin 2.6 L Urine Color Urine Appearance Urine pH Ur Specific Clymer Urine Protein Urine Glucose (UA) Urine Ketones Urine Blood Urine Nitrite Ur Leukocyte Esterase Urine WBC (Auto) Urine RBC (Auto) 02/27/19 02/27/19 02/28/19 16:10 16:49 03:11 WBC 19.1 H RBC 2.94 L Hgb 8.7 L Hct 25.9 L MCV 88 MCH 29.6 MCHC 33.7 RDW 14.5 H Plt Count 522 H Seg Neutrophils % Sodium Potassium Chloride Carbon Dioxide Anion Gap BUN Creatinine Est GFR ( Amer) Glucose Lactic Acid Calcium Total Bilirubin AST Alkaline Phosphatase Ammonia < 8.7 L Total Protein Albumin Urine Color YELLOW Urine Appearance CLOUDY Urine pH 5.0 Ur Specific [place]mer 1.021 Urine Protein 100 H Urine Glucose (UA) NEGATIVE Urine Ketones NEGATIVE Urine Blood LARGE H Urine Nitrite NEGATIVE Ur Leukocyte Esterase NEGATIVE Urine WBC (Auto) 34 Urine RBC (Auto) >182 02/28/19 03:11 WBC RBC Hgb Hct MCV MCH MCHC RDW Plt Count Seg Neutrophils % Sodium 133.8 L Potassium 4.7 Chloride 102 Carbon Dioxide 22 Anion Gap 10 BUN 36 H Creatinine 4.54 H Est GFR ( Amer) 16 L Glucose 105 Lactic Acid Calcium 7.6 L Total Bilirubin 1.0 AST 34 Alkaline Phosphatase 403 H Ammonia Total Protein 5.3 L Albumin 2.4 L Urine Color Urine Appearance Urine pH Ur Specific [place] Urine Protein Urine Glucose (UA) Urine Ketones Urine Blood Urine Nitrite Ur Leukocyte Esterase Urine WBC (Auto) Urine RBC (Auto) 02/27/19 12:50 Creatine Kinase 26 L Impressions: Abdomen/Pelvis CT 02/27/19 00:00 IMPRESSION: 1. Prior TIPS procedure versus biliary stent. There are 2 ill- defined areas of decreased attenuation in the right lobe of the liver slightly concerning for neoplasm. Consider ultrasound. 2. There is thickening of the wall of a segment of the ascending colon. Is there history of inflammatory bowel disease? 3. There is a segment of a pigtail catheter in the sigmoid colon. Chest X-Ray 02/27/19 14:43 IMPRESSION: Trace linear bibasilar opacities, likely atelectasis or scarring. No dense consolidation. No significant effusion. KUB X-Ray 02/27/19 14:43 IMPRESSION: 1. Few nonspecific loops of mildly dilated small bowel within the left abdomen measure 3.5 cm with gas noted throughout the colon. 2. Unchanged position of the biliary duct stents. Pigtail catheter overlies pelvis. Assessment & Plan - Diagnosis (1) Dehydration Is this a current diagnosis for this admission?: Yes Plan: Patient is now on IV fluids. Will monitor. He may benefit from appetite stimulant. Hopefully WBC and PLT will come down with hydration, as well as Cr. 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 Plan to follow-up with his regular oncologist in [place] on discharge. - Plan Summary Plan Summary: He may need blood transfusion. Will monitor. He is pleased with his home pain regimen. I will continue this. Thank you for this consultation. Please call with any concerns.
[2019-02-28] MEDS: OXYCODONE HCL IR 5 MG TABLET PO PRN ×3 (08:52→22:06)
[2019-02-28] MEDS: FAMOTIDINE 20 MG TABLET PO SCH (09:30)
[2019-02-28] MEDS: POTASSIUM CHLORIDE 10 MEQ CAPSULE.ER PO SCH (09:30)
[2019-02-28] MEDS: URSODIOL 300 MG CAPSULE PO SCH ×2 (09:30→22:09)
[2019-02-28] MEDS: PANTOPRAZOLE SODIUM 40 MG TABLET.DR PO SCH (09:33)
[2019-02-28] MEDS ORDERED: MORPHINE SULFATE 10 MG PO SCH (10:00)
[2019-02-28] MEDS ORDERED: (PENDING PHARMACY ID) (Potassium Chloride [Klor-Con M20] 20 MEQ) PO SCH (10:00)
[2019-02-28] MEDS ORDERED: DRONABINOL 2.5 MG CAPSULE PO PRN (10:49)
--- NOTE | 2019-02-28 11:00 | PDOC PROGRESS REPORT ---
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 He has been seeing Dr. Sofía Bass in [place] but has not yet been started on active treatment, as he has been too weak. He did have stents placed for the blockages in his gall bladder. He was scheduled to see his oncologist yesterday, but was too weak to make it to the office. He has not been able to eat anything for a week and drinks very little at home. On arrival, patient was dehydrated with renal insufficiency. He has been started on fluids and today, he states that he has not yet been up to see if he is feeling any better. He has increased anxiety and is worried about his medications, doctor bills, etc. [id number] male with gallbladder cancer with the stent placements metastasis to the liver admitted with severe dizziness and found to be in acute kidney injury and abdominal complaining of abdominal pain. Patient family main concern is the nurse. Be going to do the CT head without contrast today continue with IV fluids most likely dizziness secondary to poor appetite and decreased oral feeds. CAT scan of the abdomen was done yesterday segment with pigtail was seen in the sigmoid colon. Patient and family not sure why the patient has pigtail in sigmoid colon. Reason For Visit: QUANG,ABDOMINAL PAIN Physical Exam Vital Signs: Temp Pulse Resp BP Pulse Ox 98.7 F 92 20 109/67 99 02/28/19 08:22 02/28/19 08:22 02/28/19 08:22 02/28/19 08:22 02/28/19 08:22 Intake & Output 02/27/19 02/28/19 03/01/19 06:59 06:59 06:59 Intake Total 3300 Balance 3300 Weight 66.4 kg General appearance: PRESENT: no acute distress, thin Head exam: PRESENT: atraumatic Eye exam: PRESENT: PERRLA Mouth exam: PRESENT: moist, tongue midline Neck exam: ABSENT: carotid bruit, JVD, lymphadenopathy, thyromegaly Respiratory exam: PRESENT: decreased breath sounds Cardiovascular exam: PRESENT: RRR. ABSENT: diastolic murmur, rubs, systolic murmur GI/Abdominal exam: PRESENT: normal bowel sounds, soft, other - With surgical scar over the abdomen. ABSENT: distended, guarding, mass, organolmegaly, rebound, tenderness Rectal exam: PRESENT: deferred Extremities exam: PRESENT: full ROM. ABSENT: calf tenderness, clubbing, pedal edema Neurological exam: PRESENT: alert, awake, oriented to person, oriented to place, oriented to time, oriented to situation, CN II-XII grossly intact. ABSENT: motor sensory deficit Psychiatric exam: PRESENT: appropriate affect, normal mood. ABSENT: homicidal ideation, suicidal ideation Results Laboratory Results: 02/28/19 03:11 02/28/19 03:11 02/27/19 02/27/19 02/27/19 12:50 12:50 15:27 WBC 23.1 H RBC 3.40 L Hgb 10.0 L Hct 30.1 L MCV 89 MCH 29.3 MCHC 33.2 RDW 14.7 H Plt Count 570 H Seg Neutrophils % Not Reportable Sodium 131.5 L Potassium 4.6 Chloride 96 L Carbon Dioxide 25 Anion Gap 11 BUN 34 H Creatinine 4.08 H Est GFR ( Amer) 18 L Glucose 138 H Lactic Acid 1.1 Calcium 7.9 L Magnesium Total Bilirubin 0.9 AST 36 Alkaline Phosphatase 431 H Ammonia Total Protein 5.7 L Albumin 2.6 L Urine Color Urine Appearance Urine pH Ur Specific [place] Urine Protein Urine Glucose (UA) Urine Ketones Urine Blood Urine Nitrite Ur Leukocyte Esterase Urine WBC (Auto) Urine RBC (Auto) 02/27/19 02/27/19 02/28/19 16:10 16:49 03:11 WBC 19.1 H RBC 2.94 L Hgb 8.7 L Hct 25.9 L MCV 88 MCH 29.6 MCHC 33.7 RDW 14.5 H Plt Count 522 H Seg Neutrophils % Sodium Potassium Chloride Carbon Dioxide Anion Gap BUN Creatinine Est GFR ( Amer) Glucose Lactic Acid Calcium Magnesium Total Bilirubin AST Alkaline Phosphatase Ammonia < 8.7 L Total Protein Albumin Urine Color YELLOW Urine Appearance CLOUDY Urine pH 5.0 Ur Specific [place] 1.021 Urine Protein 100 H Urine Glucose (UA) NEGATIVE Urine Ketones NEGATIVE Urine Blood LARGE H Urine Nitrite NEGATIVE Ur Leukocyte Esterase NEGATIVE Urine WBC (Auto) 34 Urine RBC (Auto) >182 02/28/19 02/28/19 03:11 03:11 WBC RBC Hgb Hct MCV MCH MCHC RDW Plt Count Seg Neutrophils % Sodium 133.8 L Potassium 4.7 Chloride 102 Carbon Dioxide 22 Anion Gap 10 BUN 36 H Creatinine 4.54 H Est GFR ( Amer) 16 L Glucose 105 Lactic Acid Calcium 7.6 L Magnesium 1.7 Total Bilirubin 1.0 AST 34 Alkaline Phosphatase 403 H Ammonia Total Protein 5.3 L Albumin 2.4 L Urine Color Urine Appearance Urine pH Ur Specific [place] Urine Protein Urine Glucose (UA) Urine Ketones Urine Blood Urine Nitrite Ur Leukocyte Esterase Urine WBC (Auto) Urine RBC (Auto) 02/27/19 12:50 Creatine Kinase 26 L Impressions: Abdomen/Pelvis CT 02/27/19 00:00 IMPRESSION: 1. Prior TIPS procedure versus biliary stent. There are 2 ill- defined areas of decreased attenuation in the right lobe of the liver slightly concerning for neoplasm. Consider ultrasound. 2. There is thickening of the wall of a segment of the ascending colon. Is there history of inflammatory bowel disease? 3. There is a segment of a pigtail catheter in the sigmoid colon. Chest X-Ray 02/27/19 14:43 IMPRESSION: Trace linear bibasilar opacities, likely atelectasis or scarring. No dense consolidation. No significant effusion. KUB X-Ray 02/27/19 14:43 IMPRESSION: 1. Few nonspecific loops of mildly dilated small bowel within the left abdomen measure 3.5 cm with gas noted throughout the colon. 2. Unchanged position of the biliary duct stents. Pigtail catheter overlies pelvis. Assessment and Plan - Diagnosis (1) Acute kidney injury Is this a current diagnosis for this admission?: Yes Plan: We will put him on some IV fluids and follow the trend in his creatinine 02/28/2019-patient receiving IV fluids despite receiving IV fluids creatinine worsened to 4.5. Renal consult was requested. Plan is to continue hydrate him. The abdomen pelvis negative for acute pathology. denies Any problems with urination. (2) Leukocytosis Qualifiers: Leukocytosis type: unspecified Qualified Code(s): D72.829 - Elevated white blood cell count, unspecified Is this a current diagnosis for this admission?: Yes Plan: He is got some left-sided pain, could be from his cancer but will scan his belly with a CT just to make sure he does not have evidence of abscess or fluid collection -patient came in with abdominal pain negative for acute pathology WBC came down to 19,000 denies any recent history of steroid use. 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 He is following with oncologist and . (4) Dizziness Is this a current diagnosis for this admission?: Yes Plan: 02/28/2019-patient persistently complains of dizziness as per the family members meclizine is not working. Probably is dizziness secondary to severe dehydration. (5) Anemia of chronic disease Is this a current diagnosis for this admission?: No Plan: 02/28/19-hemoglobin is 8.7 admission hemoglobin is 10. Probably with IV fluids leading to hemodilution. We do not have the baseline hemoglobin. If the hemoglobin continues to drop patient may need a blood transfusion. Anemia of chronic disease most likely secondary to gallbladder cancer and he has also history of prostate cancer.
[2019-02-28] MEDS ORDERED: LORAZEPAM 1 MG TABLET PO PRN (11:26)
[2019-02-28] MEDS: CEFEPIME 2 GM/D5W RTU 2 GM/50 ML RTUPB IV SCH ×2 (11:32→22:07)
[2019-02-28] MEDS ORDERED: OXYCODONE HCL IR 5 MG TABLET PO ONE (12:00)
--- NOTE | 2019-02-28 14:00 | RADIOLOGY REPORT (SQ) ---
EXAM DESCRIPTION: CT HEAD WITHOUT COMPLETED DATE/TIME: 02/28/2019 1:47 pm REASON FOR STUDY: slurred speech COMPARISON: 01/04/2019. TECHNIQUE: Axial images acquired through the brain without intravenous contrast. Images reviewed wi th bone, brain and subdural windows. Additional sagittal and coronal reconstructions were generated. Images stored on PACS. All CT scanners at this facility use dose modulation, iterative reconstruction, and/or weight based d osing when appropriate to reduce radiation dose to as low as reasonably achievable (ALARA). [facility]: Dose Right [facility]: CareDose [facility]: Dose Right [facility]: Teradose 4D [facility]: Smart Prim[employer] RADIATION DOSE: CT Rad equipment meets quality standard of care and radiation dose reduction techniq ues were employed. CTDIvol: 48.8 mGy. DLP: 1030 mGy-cm. mGy. LIMITATIONS: None. FINDINGS: VENTRICLES: Normal size and contour. CEREBRUM: No masses. No hemorrhage. No midline shift. No evidence for acute infarction. Normal gra y/white matter differentiation. No areas of low density in the white matter. CEREBELLUM: No masses. No hemorrhage. No alteration of density. No evidence for acute infarction. EXTRAAXIAL SPACES: No fluid collections. No masses. ORBITS AND GLOBE: No intra- or extraconal masses. Normal contour of globe without masses. CALVARIUM: No fracture. PARANASAL SINUSES: Mucous membrane thickening and fluid in the maxillary and ethmoid sinuses, most pr onounced in the left maxillary sinus. SOFT TISSUES: No mass or hematoma. OTHER: No other significant finding. IMPRESSION: NORMAL BRAIN CT WITHOUT CONTRAST. SINUS DISEASE. EVIDENCE OF ACUTE STROKE: NO. COMMENT: Quality ID # [id number]: Final reports with documentation of one or more dose reduction techniques (e.g., Automated exposure control, adjustment of the mA and/or kV according to patient size, use of iterative reconstruction technique) TECHNICAL DOCUMENTATION: JOB ID: [id number] [employer]- All Rights Reserved Reading location - IP/workstation name: [email or web address]
[2019-02-28] MEDS: PROCHLORPERAZINE MALEATE 10 MG TABLET PO PRN ×2 (19:52→20:30)
[2019-02-28] MEDS ORDERED: CITALOPRAM HYDROBROMIDE 20 MG TABLET PO SCH (22:00)
[2019-02-28] MEDS ORDERED: CARBAMAZEPINE 200 MG TABLET PO SCH (22:00)
[2019-02-28] MEDS ORDERED: (PENDING PHARMACY ID) (Citalopram Hydrobromide [Citalopram Hbr] 10 MG) PO SCH (22:00)
[2019-02-28] MEDS ORDERED: PHENYTOIN SODIUM EXTENDED 100 MG CAPSULE PO SCH (22:00)
[2019-03-01] MEDS: HEPARIN SOD (PORCINE) 5,000 UNIT/ML 1 ML VIAL SUBCUT SCH ×2 (05:13→13:34)
[2019-03-01 06:43] LABS: HEMATOCRIT 27.8 % (37.9-51.0); HEMOGLOBIN 9.4 g/dL (13.5-17.0); MEAN CORPUSCULAR HEMOGLOBIN 29.7 pg (27.0-33.4); MEAN CORPUSCULAR HGB CONC 33.7 g/dL (32.0-36.0); MEAN CORPUSCULAR VOLUME 88 fl (80-97); PLATELET COUNT 544 10^3/uL (150-450); RED BLOOD COUNT 3.16 10^6/uL (4.35-5.55); RED CELL DISTRIBUTION WIDTH 15.3 % (11.5-14.0); WHITE BLOOD COUNT 17.8 10^3/uL (4.0-10.5)
[2019-03-01] MEDS: PROCHLORPERAZINE MALEATE 10 MG TABLET PO PRN (06:56)
[2019-03-01 07:07] LABS: ALBUMIN 2.4 g/dL (3.5-5.0); ALKALINE PHOSPHATASE 436 U/L (38-126); ANION GAP 14 (5-19); ASPARTATE AMINO TRANSFERASE 38 U/L (17-59); BILIRUBIN,DIRECT 1.2 mg/dL (0.0-0.4); BILIRUBIN,TOTAL 1.2 mg/dL (0.2-1.3); BLOOD UREA NITROGEN 44 mg/dL (7-20); CALCIUM 8.1 mg/dL (8.4-10.2); CARBON DIOXIDE 16 mmol/L (22-30); CHLORIDE 105 mmol/L (98-107); GLUCOSE 96 mg/dL (75-110); POTASSIUM 4.9 mmol/L (3.6-5.0); TOTAL PROTEIN 5.5 g/dL (6.3-8.2)
--- NOTE | 2019-03-01 07:48 | PDOC PROGRESS REPORT ---
Subjective Progress Note for:: 03/01/19 Subjective:: Patient states that he has still not been able to keep anything down. He asks about Hospice and possibility of going home where he is more comfortable. Reason For Visit: QUANG,ABDOMINAL PAIN Physical Exam Vital Signs: Temp Pulse Resp BP Pulse Ox 97.4 F 88 17 123/65 99 03/01/19 00:40 03/01/19 02:00 03/01/19 00:40 03/01/19 00:40 03/01/19 00:40 Intake & Output 02/28/19 03/01/19 03/02/19 06:59 06:59 06:59 Intake Total 3300 2300 Output Total 400 Balance 3300 1900 Weight 66.4 kg 69.5 kg General appearance: PRESENT: thin Head exam: PRESENT: normocephalic Respiratory exam: PRESENT: unlabored Extremities exam: ABSENT: pedal edema Neurological exam: PRESENT: alert, awake, oriented to person, oriented to place, oriented to time, oriented to situation Psychiatric exam: PRESENT: appropriate affect Skin exam: PRESENT: normal color Results Laboratory Results: 03/01/19 06:02 03/01/19 06:26 02/28/19 03/01/19 03/01/19 03:11 06:02 06:26 WBC 17.8 H RBC 3.16 L Hgb 9.4 L Hct 27.8 L MCV 88 MCH 29.7 MCHC 33.7 RDW 15.3 H Plt Count 544 H Sodium 135.4 L Potassium 4.9 Chloride 105 Carbon Dioxide 16 L Anion Gap 14 BUN 44 H Creatinine 5.97 H Est GFR ( Amer) 12 L Glucose 96 Calcium 8.1 L Magnesium 1.7 Total Bilirubin 1.2 AST 38 Alkaline Phosphatase 436 H Total Protein 5.5 L Albumin 2.4 L 02/27/19 12:50 Creatine Kinase 26 L Impressions: Abdomen/Pelvis CT 02/27/19 00:00 IMPRESSION: 1. Prior TIPS procedure versus biliary stent. There are 2 ill- defined areas of decreased attenuation in the right lobe of the liver slightly concerning for neoplasm. Consider ultrasound. 2. There is thickening of the wall of a segment of the ascending colon. Is there history of inflammatory bowel disease? 3. There is a segment of a pigtail catheter in the sigmoid colon. Chest X-Ray 02/27/19 14:43 IMPRESSION: Trace linear bibasilar opacities, likely atelectasis or scarring. No dense consolidation. No significant effusion. KUB X-Ray 02/27/19 14:43 IMPRESSION: 1. Few nonspecific loops of mildly dilated small bowel within the left abdomen measure 3.5 cm with gas noted throughout the colon. 2. Unchanged position of the biliary duct stents. Pigtail catheter overlies pelvis. Head CT 02/28/19 00:00 IMPRESSION: NORMAL BRAIN CT WITHOUT CONTRAST. SINUS DISEASE. EVIDENCE OF ACUTE STROKE: NO. Assessment & Plan - Diagnosis (1) Dehydration Is this a current diagnosis for this admission?: Yes Plan: Sadly, his CR has only worsened with IV fluids. I have explained to the patient that the IV fluids are actually doing more harm that good right now. He agrees and requests to stop these. (2) Metastasis from gallbladder cancer Is this a current diagnosis for this admission?: No Plan: Although patient remains hopeful that he will regain some strength and be able to have treatment, he also knows that this may not be possible. He has request ed Hospice services and to be discharged later today if possible. He will need medical transport home, as he cannot sit up or stand without getting dizzy. He has requested help with his will. He requests DNR status. I discussed Hospice agencies with him and the various groups here in [facility]. He has requested that I remain his physician on Hospice and has requested [facility]. I will arrange.
[2019-03-01] MEDS ORDERED: INFLUENZA QUAD (6MOS+) 2019-20 VAC 0.5 ML SYR IM ONE (08:00)
[2019-03-01] MEDS: PROMETHAZINE HCL 25 MG TABLET PO PRN ×2 (09:32→15:43)
[2019-03-01] MEDS: PANTOPRAZOLE SODIUM 40 MG TABLET.DR PO SCH (09:55)
[2019-03-01] MEDS: OXYCODONE HCL IR 5 MG TABLET PO PRN (09:56)
[2019-03-01] MEDS: POTASSIUM CHLORIDE 10 MEQ CAPSULE.ER PO SCH (10:04)
[2019-03-01] MEDS: FAMOTIDINE 20 MG TABLET PO SCH (10:05)
[2019-03-01] MEDS: CEFEPIME 2 GM/D5W RTU 2 GM/50 ML RTUPB IV SCH (10:15)
[2019-03-01] MEDS: URSODIOL 300 MG CAPSULE PO SCH (10:18)
--- NOTE | 2019-03-01 11:46 | PDOC DISCHARGE SUMMARY ---
Impression - Admit/DC Date/PCP Admission Date/Primary Care Provider: 02/27/19 16:20 MADIHA HARMAN Discharge Date: 03/01/19 - Discharge Diagnosis (1) Acute kidney injury Is this a current diagnosis for this admission?: Yes (2) Leukocytosis Is this a current diagnosis for this admission?: Yes (3) Metastasis from gallbladder cancer Is this a current diagnosis for this admission?: No (4) Dizziness Is this a current diagnosis for this admission?: Yes (5) Anemia of chronic disease Is this a current diagnosis for this admission?: No - Assessment Summary: (1) Acute kidney injury Is this a current diagnosis for this admission?: Yes Plan: We will put him on some IV fluids and follow the trend in his creatinine 02/28/2019-patient receiving IV fluids despite receiving IV fluids creatinine worsened to 4.5. Renal consult was requested. Plan is to continue hydrate him. The abdomen pelvis negative for acute pathology. denies Any problems with urination. 03/01/2019-patient admitted with acute kidney injury creatinine continued to get worse it was 5.[address] Price was done yesterday his recommendation is hospice referral. Patient had a long discussion with Dr. GARCIA and they agreed to go home with hospice care. (2) Leukocytosis Qualifiers: Leukocytosis type: unspecified Qualified Code(s): D72.829 - Elevated white blood cell count, unspecified Is this a current diagnosis for this admission?: Yes Plan: He is got some left-sided pain, could be from his cancer but will scan his belly with a CT just to make sure he does not have evidence of abscess or fluid collection -patient came in with abdominal pain negative for acute pathology WBC came down to 19,000 denies any recent history of steroid use. 03/01/2019-patient came in with abdominal pain and CT abdominal pelvis was negative for acute pathology his WBC count came down to 17,800. Patient GOING HOME today with hospice care. 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 He is following with oncologist and . 03/01/2019-patient has stage IV gallbladder cancer with metastasis patient understood the critical condition poor prognosis wants to be DNR/DNI and prefers to go home with hospice care. (4) Dizziness Is this a current diagnosis for this admission?: Yes Plan: 02/28/2019-patient persistently complains of dizziness as per the family members meclizine is not working. Probably is dizziness secondary to severe dehydration. (5) Anemia of chronic disease Is this a current diagnosis for this admission?: No Plan: 02/28/19-hemoglobin is 8.7 admission hemoglobin is 10. Probably with IV fluids leading to hemodilution. We do not have the baseline hemoglobin. If the hemoglobin continues to drop patient may need a blood transfusion. Anemia of chronic disease most likely secondary to gallbladder cancer and he has also history of prostate cancer. - Additional Information Resuscitation Status: Do Not Resuscitate Discharge Diet: As Tolerated Discharge Activity: Activity As Tolerated Referrals: [facility] [Outside] Home Medications: Carbamazepine [Tegretol 200 mg Tablet] 200 mg PO QHS 02/27/19 Morphine Sulfate [Morphine Sulfate ER] 10 mg PO DAILY 02/27/19 Oxycodone HCl [Oxycodone HCl 10 MG Tablet] 10 mg PO Q3HP PRN 02/27/19 Phenytoin Sodium Extended [Dilantin 100 mg Capsule.er] 200 mg PO QHS 02/27/19 Carbamazepine [Tegretol 200 mg Tablet] 200 mg PO Q6AM 02/28/19 Pantoprazole Sodium [Protonix [address] Tablet] 20 mg PO Q6AM 02/28/19 Pantoprazole Sodium [Protonix [address] Tablet] 20 mg PO QHS 02/28/19 Phenytoin Sodium Extended [Dilantin 100 mg Capsule.er] 200 mg PO Q6AM 02/28/19 Citalopram Hydrobromide [Celexa 20 mg Tablet] 10 mg PO QHS tablet 03/01/19 Ondansetron HCl/Pf [Zofran Inj/Pf 4 mg/2 ml Sdv] 4 mg IV Q4HP PRN vial 03/01/19 Phenytoin Sodium Extended [Dilantin 100 mg Capsule.er] 400 mg PO QHS capsule 03/01/19 History of Present Illiness History of Present Illness: JOANNA PUENTE is a 58 year old male Physical Exam Vital Signs: Temp Pulse Resp BP Pulse Ox 98.6 F 88 20 113/68 100 03/01/19 11:00 03/01/19 11:00 03/01/19 11:00 03/01/19 11:00 03/01/19 11:00 Intake & Output 02/28/19 03/01/19 03/02/19 06:59 06:59 06:59 Intake Total 3300 2300 50 Output Total 400 Balance 3300 1900 50 Weight 66.4 kg 69.5 kg Results Laboratory Results: WBC 17.8 10^3/uL (4.0-10.5) H 03/01/19 06:02 RBC 3.16 10^6/uL (4.35-5.55) L 03/01/19 06:02 Hgb 9.4 g/dL (13.5-17.0) L 03/01/19 06:02 Hct 27.8 % (37.9-51.0) L 03/01/19 06:02 MCV 88 fl (80-97) 03/01/19 06:02 MCH 29.7 pg (27.0-33.4) 03/01/19 06:02 MCHC 33.7 g/dL (32.0-36.0) 03/01/19 06:02 RDW 15.3 % (11.5-14.0) H 03/01/19 06:02 Plt Count 544 10^3/uL (150-450) H 03/01/19 06:02 Lymph % (Auto) Not Reportable 02/27/19 12:50 [place] % (Auto) Not Reportable 02/27/19 12:50 Eos % (Auto) Not Reportable 02/27/19 12:50 Baso % (Auto) Not Reportable 02/27/19 12:50 Absolute Neuts (auto) Not Reportable 02/27/19 12:50 Absolute Lymphs (auto) Not Reportable 02/27/19 12:50 Absolute Monos (auto) Not Reportable 02/27/19 12:50 Absolute Eos (auto) Not Reportable 02/27/19 12:50 Absolute Basos (auto) Not Reportable 02/27/19 12:50 Total Counted 100 02/27/19 12:50 Seg Neutrophils % Not Reportable 02/27/19 12:50 Seg Neuts % (Manual) 85 % (42-78) H 02/27/19 12:50 Lymphocytes % (Manual) 8 % (13-45) L 02/27/19 12:50 Monocytes % (Manual) 7 % (3-13) 02/27/19 12:50 Eosinophils % (Manual) 0 % (0-6) 02/27/19 12:50 Basophils % (Manual) 0 % (0-2) 02/27/19 12:50 Abs Neuts (Manual) 19.6 10^3/uL (1.7-8.2) H 02/27/19 12:50 Abs Lymphs (Manual) 1.8 10^3/uL (0.5-4.7) 02/27/19 12:50 Abs Monocytes (Manual) 1.6 10^3/uL (0.1-1.4) H 02/27/19 12:50 Absolute Eos (Manual) 0.0 10^3/uL (0.0-0.6) 02/27/19 12:50 Abs Basophils (Manual) 0.0 10^3/uL (0.0-0.2) 02/27/19 12:50 Platelet Comment INCREASED 02/27/19 12:50 Sodium 135.4 mmol/L (137-145) L 03/01/19 06:26 Potassium 4.9 mmol/L (3.6-5.0) 03/01/19 06:26 Chloride 105 mmol/L (98-107) 03/01/19 06:26 Carbon Dioxide 16 mmol/L (22-30) L 03/01/19 06:26 Anion Gap 14 (5-19) 03/01/19 06:26 BUN 44 mg/dL (7-20) H 03/01/19 06:26 Creatinine 5.97 mg/dL (0.52-1.25) H 03/01/19 06:26 Est GFR ( Amer) 12 (>60) L 03/01/19 06:26 Est GFR (MDRD) Non-Af 10 (>60) L 03/01/19 06:26 Glucose 96 mg/dL (75-110) 03/01/19 06:26 Lactic Acid 1.1 mmol/L (0.7-2.1) 02/27/19 15:27 Calcium 8.1 mg/dL (8.4-10.2) L 03/01/19 06:26 Magnesium 1.7 mg/dL (1.6-2.3) 02/28/19 03:11 Total Bilirubin 1.2 mg/dL (0.2-1.3) 03/01/19 06:26 Direct Bilirubin 1.2 mg/dL (0.0-0.4) H 03/01/19 06:26 Neonat Total Bilirubin Not Reportable 03/01/19 06:26 Neonat Direct Bilirubin Not Reportable 03/01/19 06:26 Neonat Indirect Bili Not Reportable 03/01/19 06:26 AST 38 U/L (17-59) 03/01/19 06:26 ALT 9 U/L (<50) 03/01/19 06:26 Alkaline Phosphatase 436 U/L (38-126) H 03/01/19 06:26 Ammonia < 8.7 umol/L (9-33) L 02/27/19 16:10 Creatine Kinase 26 U/L (55-170) L 02/27/19 12:50 Total Protein 5.5 g/dL (6.3-8.2) L 03/01/19 06:26 Albumin 2.4 g/dL (3.5-5.0) L 03/01/19 06:26 Urine Color YELLOW 02/27/19 16:49 Urine Appearance CLOUDY 02/27/19 16:49 Urine pH 5.0 (5.0-9.0) 02/27/19 16:49 Ur Specific [place] 1.021 02/27/19 16:49 Urine Protein 100 mg/dL (NEGATIVE) H 02/27/19 16:49 Urine Glucose (UA) NEGATIVE mg/dL (NEGATIVE) 02/27/19 16:49 Urine Ketones NEGATIVE mg/dL (NEGATIVE) 02/27/19 16:49 Urine Blood LARGE (NEGATIVE) H 02/27/19 16:49 Urine Nitrite NEGATIVE (NEGATIVE) 02/27/19 16:49 Urine Bilirubin NEGATIVE (NEGATIVE) 02/27/19 16:49 Urine Urobilinogen NEGATIVE mg/dL (<2.0) 02/27/19 16:49 Ur Leukocyte Esterase NEGATIVE (NEGATIVE) 02/27/19 16:49 Urine WBC (Auto) 34 /HPF 02/27/19 16:49 Urine RBC (Auto) >182 /HPF 02/27/19 16:49 Urine Bacteria (Auto) TRACE /HPF 02/27/19 16:49 Squamous Epi Cells Auto 5 /HPF 02/27/19 16:49 U Non-Squamous Epis Auto 1 /HPF 02/27/19 16:49 Amorphous Sediment Auto TRACE /HPF 02/27/19 16:49 Urine Mucus (Auto) RARE /LPF 02/27/19 16:49 Urine Ascorbic Acid NEGATIVE (NEGATIVE) 02/27/19 16:49 Phenytoin 9.7 ug/mL (10.0-20.0) L 02/27/19 16:10 Carbamazepine 8.0 ug/mL (4.0-12.0) 02/27/19 16:10 Impressions: Abdomen/Pelvis CT 02/27/19 00:00 IMPRESSION: 1. Prior TIPS procedure versus biliary stent. There are 2 ill-defined areas of decreased attenuation in the right lobe of the liver slightly concerning for neoplasm. Consider ultrasound. 2. There is thickening of the wall of a segment of the ascending colon. Is there history of inflammatory bowel disease? 3. There is a segment of a pigtail catheter in the sigmoid colon. Chest X-Ray 02/27/19 14:43 IMPRESSION: Trace linear bibasilar opacities, likely atelectasis or scarring. No dense consolidation. No significant effusion. KUB X-Ray 02/27/19 14:43 IMPRESSION: 1. Few nonspecific loops of mildly dilated small bowel within the left abdomen measure 3.5 cm with gas noted throughout the colon. 2. Unchanged position of the biliary duct stents. Pigtail catheter overlies pelvis. Head CT 02/28/19 00:00 IMPRESSION: NORMAL BRAIN CT WITHOUT CONTRAST. SINUS DISEASE. EVIDENCE OF ACUTE STROKE: NO. Stroke Is this a Stroke Patient?: No Acute Heart Failure - Is this a Heart Failure Patient?: No
[2019-03-01 17:39] VITALS: BP 135/81
[2019-03-02] MEDS ORDERED: CEFEPIME 2 GM/D5W RTU 2 GM/50 ML RTUPB IV SCH (10:00)
== END 2019-03-01 17:05 | disposition hospice, home (50) | DRG 683 ==
LOC: ER 12:39 → EH 16:20 → 5 18:09
PROVIDERS: ADMIT Family Medicine; ATTEND Family Medicine
DX: N17.9 Acute kidney failure, unspecified (principal); C23 Malignant neoplasm of gallbladder; C78.7 Secondary malignant neoplasm of liver and intrahepatic bile duct; D63.0 Anemia in neoplastic disease; Z66 Do not resuscitate; F41.9 Anxiety disorder, unspecified; I10 Essential (primary) hypertension; K21.9 Gastro-esophageal reflux disease without esophagitis; F32.9 Major depressive disorder, single episode, unspecified; E86.0 Dehydration; Z85.46 Personal history of malignant neoplasm of prostate; Z79.899 Other long term (current) drug therapy; Z79.891 Long term (current) use of opiate analgesic; Z88.6 Allergy status to analgesic agent; Z91.040 Latex allergy status; Z59.9 Problem related to housing and economic circumstances, unspecified; Z87.891 Personal history of nicotine dependence; Z82.49 Family history of ischemic heart disease and other diseases of the circulatory system; Z80.3 Family history of malignant neoplasm of breast
CPT/HCPCS: 36415; 70450; 71045; 74018; 74176; 80053; 80156; 80185; 81001; 82140; 82550; 83605; 83735; 85025; 85027; 87040; 87077; 87186; 93005; 93010; 96361; 96365; 96375; 99291; A9270-GY; J0692; J0780; J2543; J3490; J7030; S0183

== ENCOUNTER 2019-03-06 07:15 | Inpatient (IN) | payer MEDICAID ==
[2019-03-06] MEDS ORDERED: ONDANSETRON HCL INJ/PF 4 MG/2 ML SDV IV ONE (08:49)
[2019-03-06] MEDS ORDERED: NORMAL SALINE 1000 ML 1,000 ML IV ONE (08:49)
[2019-03-06] MEDS ORDERED: PROCHLORPERAZINE EDISYLATE INJ 10 MG/2 ML VIAL IV ONE (10:30)
--- NOTE | 2019-03-06 10:30 | ER Document Report ---
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 Since he has been at home he is had nausea vomiting diarrhea. He has required a progressively increasing dosage of Compazine to control his nausea and vomiting. He is brought the emergency room today hoping to get a PICC line inserted so that he can receive his medications at home to keep him comfortable. By history he has not urinated in several days, has not kept any fluids down, the caretakers are not interested in the patient having any lab work or IV fluids, only the PICC line so he can receive medications at home. TRAVEL OUTSIDE OF THE [place] IN LAST 30 DAYS: No - Related Data Allergies/Adverse Reactions: codeine Adverse Reaction (Verified 02/16/19 08:52) latex Adverse Reaction (Verified 02/16/19 08:52) Past Medical History - General Information source: [facility] Records - Social History Smoking Status: Former Smoker Cigarette use (# per day): No Chew tobacco use (# tins/day): No Smoking Education Provided: No Frequency of alcohol use: None Drug Abuse: None Lives with: Family Family History: Reviewed & Not Pertinent Patient has suicidal ideation: No Patient has homicidal ideation: No - Past Medical History Cardiac Medical History: Reports: Hx Hypertension Neurological Medical History: Reports: Hx Seizures Malignancy Medical History: Reports Other - Gallbladder cancer with metastasis to the liver GI Medical History: Reports: Hx Gastroesophageal Reflux Disease Psychiatric Medical History: Reports: Hx Depression Past Surgical History: Reports: Hx Orthopedic Surgery - right arm, Other - Biliary drain, hepatic duct stent placement to right and left since removed Review of Systems - Review of Systems -: Yes ROS unobtainable due to patient's medical condition Physical Exam - Vital signs Vitals: BP 131/87 H 03/06/19 07:25 - Notes Notes: Physical Exam: General: Responds to noxious stimuli but predominantly keeps eyes closed, does not answer questions. HEENT: Normocephalic. Atraumatic. PERRL. Extraocular movements intact. Oropharynx clear. Dry mucous membranes. Neck: Supple. Non-tender. Respiratory: No respiratory distress. Clear and equal breath sounds bilaterally. Cardiovascular: Regular rate and rhythm. Abdominal: Normal Inspection. Non-tender. No distension. Normal Bowel Sounds. Back: No gross abnormalities. Extremities: Moves all four extremities. Upper extremities: Normal inspection. Normal ROM. Lower extremities: Normal inspection. No edema. Normal ROM. Neurological: Confused. Does not converse or answer questions. Skin: Warm. Dry. Normal color. Course - Re-evaluation Re-evalutation: 03/06/19 15:33 After the patient returned from having his PICC line inserted, the hospice nurse had gone home to bed and turned off her phone. I was informed by the nurse that the management at the hospice group stated that they cannot take care of a patient with a PICC line at home and wanted the patient admitted to the hospital. I had the hospital senior sales administrator store operations manager come down to speak with the patient, family, and the home health care agency to sort out this issue. Ultimately decided that they would have the hospitalist group admit the patient to the hospital. I talked with Dr. Cheema who did the patient's discharge a few days ago, he will come see the patient and do the admission. - Vital Signs Vital signs: Temp Pulse Resp BP Pulse Ox 97.6 F 95 13 157/95 H 97 03/06/19 07:36 03/06/19 07:36 03/06/19 10:01 03/06/19 10:01 03/06/19 13:00 - Consults Dr. Anderson Time consulted: 09:36 Consulted provider: will come to ER Discharge - Discharge Clinical Impression: Liver metastases, Dehydration, Metastasis from gallbladder cancer Nausea and vomiting Qualifiers: Vomiting type: unspecified Vomiting Intractability: non-intractable Qualified Code(s): R11.2 - Nausea with vomiting, unspecified Condition: Fair Disposition: ADMITTED INPATIENT Admitting Provider: Deni (Hospitalist) Unit Admitted: Medical Floor Referrals: LULA GARCIA MD [Primary Care Provider] - Follow up as needed Scribe Attestation: 03/06/19 10:32 I personally performed the services described in the documentation, reviewed and edited the documentation which was dictated to the scribe in my presence, and it accurately records my words and actions. I personally performed the services described in the documentation, reviewed and edited the documentation which was dictated to the scribe in my presence, and it accurately records my words and actions.
[2019-03-06] MEDS ORDERED: LIDOCAINE 1% INJ-PF (10 MG/ML) 30 ML SDV ONE (10:43)
--- NOTE | 2019-03-06 11:51 | Operative Report ---
Operative Report DATE OF SURGERY: 03/06/19 PREOPERATIVE DIAGNOSIS: Metastatic gallbladder carcinoma POSTOPERATIVE DIAGNOSIS: Same OPERATION: 1. Insertion of right basilic vein single-lumen 5 Cymraes PICC line using ultrasound guidance. 2. Interpretation of intraoperative fluoroscopy SURGEON: ENRIQUE ANDERSON ANESTHESIA: Local TISSUE REMOVED OR ALTERED: None COMPLICATIONS: None ESTIMATED BLOOD LOSS: Scant INTRAOPERATIVE FINDINGS: See below PROCEDURE: The patient was taken from the emergency department to the cardiac catheterization lab was placed in supine position on the cath table. Right arm was abducted. The right arm was scanned to ascertain suitability of superficial vein for cannulation. The basilic vein right side was felt to be appropriate The right upper extremity was prepped and draped sterile fashion. Surgical plan and surgical timeout were conducted. Suitable site for placement of the PICC line was chosen in the mid right upper arm. The skin was anesthetized 1% plain lidocaine. A small steve was made the skin with 11 blade, and the micro needle and wire were threaded into the right basilic vein. We then placed the micro introducer over the micro wire, and replaced the micro wire with a larger caliber guidewire. We then threaded on top of this guidewire a 6 Cymraes introducer and strip away sheath. We then trimmed to the single-lumen, 5 Cymraes PICC line to approximately 32 cm from tip to tip, and threaded through the strip away sheath after removing the introducer. This was all done under fluoroscopic guidance. The tip of the catheter was in the right atrium. There is no evidence of ectopy. There was excellent aspiration and flush through the catheter. The wire was removed uneventfully, and the catheter secured to the skin with the proprietary adhesive plastic device. Appropriate sterile dressing was applied. Patient tolerated procedure well and taken back to the department in stable condition. Communication was had between Dr. Anderson, nursing staff and Dr. Frederic Harvey in the emergency department about the discharge plan.
[2019-03-06 12:08] VITALS: BP 157/95
--- NOTE | 2019-03-06 13:37 | RADIOLOGY REPORT (SQ) ---
EXAM DESCRIPTION: PICC INSERTION COMPLETED DATE/TIME: 03/06/2019 11:41 am REASON FOR STUDY: NEED FOR VASCULAR ACCESS COMPARISON: AP chest 02/27/2019 FLUOROSCOPY TIME: Less than 5 seconds 1 digital fluoroscopic image saved to PACS. TECHNIQUE: Intra-operative images acquired during surgical procedure to evaluate progress. NUMBER OF IMAGES: 1 digital fluoroscopic image LIMITATIONS: None. FINDINGS: 1 digital fluoroscopic image recorded to pac's during placement of a right PICC catheter. Please see the operative report for further details IMPRESSION: Intra procedural imaging and fluoro COMMENT: Quality ID [id number]: Final reports for procedures using fluoroscopy that document radiation exp osure indices, or exposure time and number of fluorographic images (if radiation exposure indices are not available) Please consult full operative report of the attending physician for description of the procedure. TECHNICAL DOCUMENTATION: JOB ID: [id number] [employer]- All Rights Reserved Reading location - IP/workstation name: [email or web address]
[2019-03-06] MEDS ORDERED: GLUCAGON,HUMAN RECOMB 1 MG INJ SUBCUT PRN (16:17)
[2019-03-06] MEDS ORDERED: METOCLOPRAMIDE HCL INJ/PF 10 MG/2 ML SDV IV PRN (16:17)
[2019-03-06] MEDS ORDERED: PROMETHAZINE HCL INJ 25 MG/1 ML VIAL IV PRN (16:17)
[2019-03-06] MEDS ORDERED: DEXTROSE 50%-WATER 25 GM/50 ML DISP.SYRIN IV PRN ×2 (16:17)
[2019-03-06] MEDS ORDERED: DEXTROSE 40% GEL 15 GM TUBE PO PRN ×2 (16:17)
[2019-03-06] MEDS ORDERED: HALOPERIDOL LACTATE INJ 5 MG/1 ML VIAL IV PRN (16:23)
[2019-03-06] MEDS: MORPHINE SULFATE 10 MG/ML INJ IV PRN ×2 (17:26→22:26)
--- NOTE | 2019-03-06 18:28 | PDOC H&P ---
History of Present Illness Admission Date/PCP: 03/06/19 16:04 LULA GARCIA MD Patient complains of: Intractable nausea and vomiting History of Present Illness: JOANNA PUENTE is a 58 year old male with history of gallbladder cancer with metastasis to the liver, hospice patient, with history of hypertension depression, gastric further reflux disease discharged 4 days ago with hospice care came back to the emergency room with persistent nausea and vomitings p atient unable to keep anything down and persistent diarrhea they tried to give Compazine is not helping hospice nurse recommended the family to take the patient to the ER for possible PICC line. PICC line was placed in the emergency room then the hospice nurse told the ER physician that they cannot able to take care of the PICC line as an outpatient patient is to be admitted to the hospital for further management. I had a long discussion with the patient's daughter and the family members they do not want any lab work did not want any IV fluids they requesting only comfort care measures. CODE STATUS is DNR/DNI. Past Medical History Cardiac Medical History: Reports: Hypertension Neurological Medical History: Reports: Seizures Malignancy Medical History: Reports: Liver Cancer, Other - Gallbladder cancer with metastasis to the liver GI Medical History: Reports: Gastroesophageal Reflux Disease Psychiatric Medical History: Reports: Depression Past Surgical History Past Surgical History: Reports: Orthopedic Surgery - right arm, Other - Biliary drain, hepatic duct stent placement to right and left since removed Social History Information Source: Relative Lives with: Family Smoking Status: Former Smoker Frequency of Alcohol Use: None Hx Recreational Drug Use: No Drugs: None Hx Prescription Drug Abuse: No - Advance Directive Resuscitation Status: Do Not Resuscitate Family History Family History: Reviewed & Not Pertinent Parental Family History Reviewed: Yes - Family history of hypertension. Children Family History Reviewed: Yes Sibling(s) Family History Reviewed.: Yes Medication/Allergy Home Medications: Carbamazepine [Tegretol 200 mg Tablet] 200 mg PO QHS 02/27/19 Morphine Sulfate [Morphine Sulfate ER] 10 mg PO DAILY 02/27/19 Oxycodone HCl [Oxycodone HCl 10 MG Tablet] 10 mg PO Q3HP PRN 02/27/19 Phenytoin Sodium Extended [Dilantin 100 mg Capsule.er] 200 mg PO QHS 02/27/19 Carbamazepine [Tegretol 200 mg Tablet] 200 mg PO Q6AM 02/28/19 Pantoprazole Sodium [Protonix [address] Tablet] 20 mg PO Q6AM 02/28/19 Pantoprazole Sodium [Protonix [address] Tablet] 20 mg PO QHS 02/28/19 Phenytoin Sodium Extended [Dilantin 100 mg Capsule.er] 200 mg PO Q6AM 02/28/19 Allergies/Adverse Reactions: codeine Adverse Reaction (Verified 02/16/19 08:52) latex Adverse Reaction (Verified 02/16/19 08:52) Review of Systems Constitutional: PRESENT: fatigue, weakness. ABSENT: fever(s), headache(s) Eyes: ABSENT: visual disturbances Ears: ABSENT: hearing changes Nose, Mouth, and Throat: ABSENT: sore throat Cardiovascular: ABSENT: edema, orthropnea, palpitations Respiratory: ABSENT: dyspnea, hemoptysis Gastrointestinal: PRESENT: diarrhea, nausea, vomiting Musculoskeletal: ABSENT: joint swelling Integumentary: ABSENT: rash, wounds Neurological: ABSENT: abnormal gait, abnormal speech, confusion, dizziness, focal weakness, syncope Psychiatric: ABSENT: anxiety, depression, homidical ideation, suicidal ideation Physical Exam Vital Signs: Temp Pulse Resp BP Pulse Ox 97.6 F 95 13 157/95 H 97 03/06/19 07:36 03/06/19 07:36 03/06/19 10:01 03/06/19 10:01 03/06/19 13:00 Intake & Output 03/05/19 03/06/19 03/07/19 06:59 06:59 06:59 Weight 63.8 kg General appearance: PRESENT: no acute distress, disheveled, thin Head exam: PRESENT: atraumatic Eye exam: PRESENT: PERRLA Mouth exam: PRESENT: moist, tongue midline Teeth exam: PRESENT: poor dentation Neck exam: ABSENT: carotid bruit, JVD, lymphadenopathy, thyromegaly Respiratory exam: PRESENT: decreased breath sounds Cardiovascular exam: PRESENT: tachycardia GI/Abdominal exam: PRESENT: normal bowel sounds, soft. ABSENT: distended, guarding, mass, organolmegaly, rebound, tenderness Rectal exam: PRESENT: deferred Neurological exam: PRESENT: alert, awake, oriented to person, oriented to place, oriented to time, oriented to situation, CN II-XII grossly intact. ABSENT: motor sensory deficit Psychiatric exam: PRESENT: appropriate affect, normal mood. ABSENT: homicidal ideation, suicidal ideation Results Impressions: PICC Line Insertion 03/06/19 00:00 IMPRESSION: Intra procedural imaging and fluoro Assessment and Plan - Diagnosis (1) Metastasis from gallbladder cancer Is this a current diagnosis for this admission?: No (2) Nausea and vomiting Qualifiers: Vomiting type: unspecified Vomiting Intractability: non-intractable Qualified Code(s): R11.2 - Nausea with vomiting, unspecified Is this a current diagnosis for this admission?: Yes - Plan Summary Summary: 1.nausea and vomiting Patient has a PICC line in the emergency room is good to be admitted to the hospital as an inpatient to give IV Zofran, IV Phenergan along with Compazine for nausea vomiting's. Gabriela does not want any lab work does not want any IV fluids supplementation. The request is to put him on IV Ativan, IV morphine, IV Haldol and Compazine. They requested for comfort care measures only. CODE STATUS is DNR/DNI. Started on scopolamine patch, IV Ativan, IV Haldol, IV morphine, and IV Phenergan, IV Zofran. Overall prognosis poor condition is critical. 2.gallbladder cancer with metastasis to the liver Was admitted last week for altered mental status at the time found to have gallbladder cancer with metastasis to liver consultation with oncology was done she also has renal failure at the time of admission last week and oncology recommendations and Dr. Price's recommendations he is comfort care measures only and hospice referral patient went home with hospice care this is 4 days ago as mentioned above he came back with nausea and vomiting's family is requesting only comfort care measures. 3.comfort care measures only. As per the family request patient was placed under comfort care measures only.
[2019-03-06] MEDS: LORAZEPAM INJ 2 MG/1 ML VIAL IV PRN (20:21)
[2019-03-07] MEDS: MORPHINE SULFATE 10 MG/ML INJ IV PRN ×4 (06:07→15:52)
[2019-03-07] MEDS: LORAZEPAM INJ 2 MG/1 ML VIAL IV PRN ×4 (06:08→15:53)
--- NOTE | 2019-03-07 07:46 | PDOC CONSULTATION ---
Consultation Consult Date: 03/07/19 Provider Consulted: LULA GARCIA Consult reason:: Palliative Care/Hospice consult was requested for patient known to me on Hospice. History of Present Illness Admission Date/PCP: 03/06/19 16:04 LULA GARCIA MD History of Present Illness: JOANNA PUENTE is a 58 year old male who was recently discharged from this institution and admitted to Hospice with a primary diagnosis of Metastatic Gall Bladder Cancer. Patient had intractable nausea and vomiting at home which was not controlled with PO/WY medications. PICC line was started on admission and over night, patient has been much more comfortable. Family is at bedside and report that he is only awake for a few minutes at a time. He is no longer taking any PO. He has had a little urine output. He has hiccups, but has been much more comfortable over night. Past Medical History Cardiac Medical History: Reports: Hypertension Neurological Medical History: Reports: Seizures Malignancy Medical History: Reports: Liver Cancer, Other - Gallbladder cancer with metastasis to the liver GI Medical History: Reports: Gastroesophageal Reflux Disease Psychiatric Medical History: Reports: Depression Past Surgical History Past Surgical History: Reports: Orthopedic Surgery - right arm, Other - Biliary drain, hepatic duct stent placement to right and left since removed Social History Lives with: Family Smoking Status: Former Smoker Frequency of Alcohol Use: None Hx Recreational Drug Use: No Drugs: None Hx Prescription Drug Abuse: No - Advance Directive Resuscitation Status: Do Not Resuscitate Family History Family History: Reviewed & Not Pertinent Parental Family History Reviewed: Yes Children Family History Reviewed: Yes Sibling(s) Family History Reviewed.: Yes Medication/Allergy Home Medications: Carbamazepine [Tegretol 200 mg Tablet] 200 mg PO QHS 02/27/19 Morphine Sulfate [Morphine Sulfate ER] 10 mg PO DAILY 02/27/19 Oxycodone HCl [Oxycodone HCl 10 MG Tablet] 10 mg PO Q3HP PRN 02/27/19 Phenytoin Sodium Extended [Dilantin 100 mg Capsule.er] 200 mg PO QHS 02/27/19 Carbamazepine [Tegretol 200 mg Tablet] 200 mg PO Q6AM 02/28/19 Pantoprazole Sodium [Protonix [address] Tablet] 20 mg PO Q6AM 02/28/19 Pantoprazole Sodium [Protonix [address] Tablet] 20 mg PO QHS 02/28/19 Phenytoin Sodium Extended [Dilantin 100 mg Capsule.er] 200 mg PO Q6AM 02/28/19 Allergies/Adverse Reactions: codeine Adverse Reaction (Verified 02/16/19 08:52) latex Adverse Reaction (Verified 02/16/19 08:52) Review of Systems ROS unobtainable: Due to mental status Review of Systems: But family reports breathing well. Hiccups, restlessness. Physical Exam Vital Signs: Temp Pulse Resp BP Pulse Ox 97.6 F 95 13 157/95 H 97 03/06/19 07:36 03/06/19 07:36 03/06/19 10:01 03/06/19 10:01 03/06/19 13:00 Intake & Output 03/06/19 03/07/19 03/08/19 06:59 06:59 06:59 Weight 63.8 kg General appearance: PRESENT: no acute distress, well-developed, well-nourished Head exam: PRESENT: normocephalic Mouth exam: PRESENT: dry mucosa Neck exam: ABSENT: lymphadenopathy, tenderness Respiratory exam: PRESENT: clear to auscultation deysi, unlabored Additional comments: Some periods of apnea. Cardiovascular exam: PRESENT: RRR GI/Abdominal exam: PRESENT: soft. ABSENT: tenderness Extremities exam: ABSENT: joint swelling, pedal edema Musculoskeletal exam: PRESENT: normal inspection Neurological exam: PRESENT: other - Sleeping peacefully, with hiccups. Focused psych exam: ABSENT: restlessness Skin exam: PRESENT: normal color Results Impressions: PICC Line Insertion 03/06/19 00:00 IMPRESSION: Intra procedural imaging and fluoro Assessment & Plan - Diagnosis (1) Metastasis from gallbladder cancer Is this a current diagnosis for this admission?: No Plan: Patient and family are very pleased with comfort measures thus far. Continue Hospice/Palliative Care. He is DNR/DNI. (2) Nausea and vomiting Qualifiers: Vomiting type: unspecified Vomiting Intractability: non-intractable Qualified Code(s): R11.2 - Nausea with vomiting, unspecified Is this a current diagnosis for this admission?: Yes Plan: Continue current treatments. Discussed possible Thorazine IV if needed for the hiccups. However, patient appears very comfortable currently. - Plan Summary Plan Summary: Please call me with any concerns.
[2019-03-07] MEDS: SCOPOLAMINE HYDROBROMIDE 1.5 MG PATCH.TD72 TD SCH (08:52)
[2019-03-07] MEDS: PANTOPRAZOLE SODIUM 40 MG VIAL IV SCH (10:10)
[2019-03-07] MEDS: CHLORPROMAZINE HCL INJ 25 MG/1 ML AMPULE IV PRN ×2 (11:02→19:02)
--- NOTE | 2019-03-07 20:04 | PDOC PROGRESS REPORT ---
Subjective Progress Note for:: 03/07/19 Subjective:: The patient is a 58-year-old male with a past medical history significant with significant for gallbladder cancer with liver metastasis, hypertension, seizure disorder, GERD, and depression who was discharged home with home hospice services last week and unfortunately was readmitted for intractable nausea and vomiting. Patient was seen on morning rounds with multiple family members present. He was found resting in bed comfortably on room air. He was sleeping soundly; did not make attempts to wake patient. He is noted to have continued hiccups. ROS is obtained from family members; no fever or chills, reports of chest pain or dyspnea overnight. Slight nausea without emesis overnight. Overall his symptoms are significantly improved. Discussed with family members goals of care; continued comfort care measures only. All questions and concerns addressed. No concerns per nursing. Reason For Visit: GALL BLADDER CANCER WITH MEDS Physical Exam Vital Signs: Temp Pulse Resp BP Pulse Ox 97.6 F 95 13 157/95 H 97 03/06/19 07:36 03/06/19 07:36 03/06/19 10:01 03/06/19 10:01 03/06/19 13:00 Intake & Output 03/06/19 03/07/19 03/08/19 06:59 06:59 06:59 Weight 63.8 kg General appearance: PRESENT: no acute distress, well-developed, well-nourished Head exam: PRESENT: atraumatic, normocephalic Eye exam: PRESENT: conjunctiva pale Mouth exam: PRESENT: moist, tongue midline Respiratory exam: PRESENT: clear to auscultation deysi, symmetrical, unlabored Cardiovascular exam: PRESENT: irregular rhythm, +S1, +S2, tachycardia Neurological exam: PRESENT: other - sleeping soundly Skin exam: PRESENT: intact, mottled - BLE, pallor, warm Results Impressions: PICC Line Insertion 03/06/19 00:00 IMPRESSION: Intra procedural imaging and fluoro Assessment and Plan - Diagnosis (1) Intractable nausea and vomiting Is this a current diagnosis for this admission?: Yes Plan: Improved; Slight nausea overnight without emesis. Continue IV Protonix daily, Reglan every 4 as needed, scopolamine patch, IV Ativan/Haldol, and Thorazine for hiccups. (2) Need for comfort care Is this a current diagnosis for this admission?: Yes Plan: Now on comfort care measures only. Antiemetics as needed. IV Ativan or Haldol as needed for anxiety/agitation. IV morphine as needed for pain or tachypnea/air hunger. Scopolamine patch for oral secretions. Tylenol as needed for fever. Discharge planning consulted. (3) Liver metastases Is this a current diagnosis for this admission?: Yes Plan: Gallbladder cancer with liver metastasis. Now on comfort care measures only. Oncology has been consulted. (4) Metastasis from gallbladder cancer Is this a current diagnosis for this admission?: Yes Plan: Gallbladder cancer with liver metastasis. Now on comfort care measures only. Oncology has been consulted. - Time Time Spent with patient: 35 or more minutes Medications reviewed and adjusted accordingly: Yes Anticipated discharge: Other - Expectant ; unstable for d/c to home. Within: within 72 hours
[2019-03-08] MEDS: MORPHINE SULFATE 10 MG/ML INJ IV PRN ×5 (00:54→22:24)
[2019-03-08] MEDS: PANTOPRAZOLE SODIUM 40 MG VIAL IV SCH (09:00)
[2019-03-08] MEDS: LORAZEPAM INJ 2 MG/1 ML VIAL IV PRN ×2 (10:17→20:56)
--- NOTE | 2019-03-08 15:24 | PDOC PROGRESS REPORT ---
Subjective Progress Note for:: 03/08/19 Subjective:: Patient sleeping peacefully. Opens eyes briefly. Family is very happy with overall care. They have been able to rest knowing his symptoms are better controlled with IV medications. Reason For Visit: GALL BLADDER CANCER WITH MEDS Physical Exam Vital Signs: Temp Pulse Resp BP Pulse Ox 97.6 F 95 13 157/95 H 97 03/06/19 07:36 03/06/19 07:36 03/06/19 10:01 03/06/19 10:01 03/06/19 13:00 Intake & Output 03/07/19 03/08/19 03/09/19 06:59 06:59 06:59 Weight 63.8 kg General appearance: PRESENT: no acute distress Respiratory exam: PRESENT: prolonged expiratory phas Neurological exam: ABSENT: alert, awake Skin exam: PRESENT: mottled Results Impressions: PICC Line Insertion 03/06/19 00:00 IMPRESSION: Intra procedural imaging and fluoro Assessment & Plan - Diagnosis (1) Metastasis from gallbladder cancer Is this a current diagnosis for this admission?: Yes (2) Nausea and vomiting Qualifiers: Vomiting type: unspecified Vomiting Intractability: non-intractable Qualified Code(s): R11.2 - Nausea with vomiting, unspecified Is this a current diagnosis for this admission?: Yes - Time Time Spent with patient: Less than 15 minutes - Plan Summary Plan Summary: Continue comfort measures only. Patient continues to benefit from IV medications for palliation of nausea and restlessness. This cannot currently be provided by Home Hospice. Continue current measures. No blood work, no aggressive treatments.
--- NOTE | 2019-03-08 17:51 | PDOC PROGRESS REPORT ---
Subjective Progress Note for:: 03/08/19 Subjective:: The patient is a 58-year-old male with a past medical history significant with significant for gallbladder cancer with liver metastasis, hypertension, seizure disorder, GERD, and depression who was discharged home with home hospice services last week and unfortunately was readmitted for intractable nausea and vomiting. Patient was seen on morning rounds with daughter present. He was found resting in bed comfortably on room air. He was awake and moaning in discomfort. He does not make eye contact, answer questions, or follow directions. ROS is obtained from family members; no fever or chills, reports of chest pain, dyspnea, nausea/vomiting overnight. Improved hiccups. Overall his symptoms are significantly improved. Discussed with family members goals of care; continued comfort care measures only. All questions and concerns addressed. No concerns per nursing. Reason For Visit: GALL BLADDER CANCER WITH MEDS Physical Exam Vital Signs: Temp Pulse Resp BP Pulse Ox 97.6 F 95 13 157/95 H 97 03/06/19 07:36 03/06/19 07:36 03/06/19 10:01 03/06/19 10:01 03/06/19 13:00 Intake & Output 03/07/19 03/08/19 03/09/19 06:59 06:59 06:59 Weight 63.8 kg General appearance: PRESENT: mild distress, well-developed, well-nourished, other - acute/chronically ill appearing Head exam: PRESENT: atraumatic, normocephalic Mouth exam: PRESENT: dry mucosa, tongue midline Teeth exam: PRESENT: poor dentation Respiratory exam: PRESENT: decreased breath sounds - throughout, symmetrical, unlabored Cardiovascular exam: PRESENT: irregular rhythm, +S1, +S2, tachycardia Pulses: PRESENT: +1 pedal pulses bilateral Vascular exam: PRESENT: pallor Neurological exam: PRESENT: awake, CN II-XII grossly intact, other - does not answer questions/follow directions Skin exam: PRESENT: intact, mottled, pallor, other - cool hands/feet Results Impressions: PICC Line Insertion 03/06/19 00:00 IMPRESSION: Intra procedural imaging and fluoro Assessment and Plan - Diagnosis (1) Intractable nausea and vomiting Is this a current diagnosis for this admission?: Yes Plan: Improved; no nausea/emesis overnight. Continue IV Protonix daily, Reglan every 4 as needed, scopolamine patch, IV Ativan/Haldol, and Thorazine for hiccups. (2) Need for comfort care Is this a current diagnosis for this admission?: Yes Plan: Now on comfort care measures only. Antiemetics as needed. IV Ativan or Haldol as needed for anxiety/agitation. IV morphine as needed for pain or tachypnea/air hunger. Scopolamine patch for oral secretions. Tylenol as needed for fever. Discharge planning consulted. (3) Liver metastases Is this a current diagnosis for this admission?: Yes Plan: Gallbladder cancer with liver metastasis. Now on comfort care measures only. Oncology has been consulted. (4) Metastasis from gallbladder cancer Is this a current diagnosis for this admission?: Yes Plan: Gallbladder cancer with liver metastasis. Now on comfort care measures only. Oncology has been consulted. - Time Time Spent with patient: 15-24 minutes Medications reviewed and adjusted accordingly: Yes Anticipated discharge: Other - Expectant ; unstable for d/c to home. Within: within 72 hours
[2019-03-09] MEDS: MORPHINE SULFATE 10 MG/ML INJ IV PRN ×9 (00:42→23:56)
[2019-03-09] MEDS: LORAZEPAM INJ 2 MG/1 ML VIAL IV PRN ×5 (09:11→22:31)
[2019-03-09] MEDS: PANTOPRAZOLE SODIUM 40 MG VIAL IV SCH (09:11)
[2019-03-09] MEDS: SCOPOLAMINE HYDROBROMIDE 1.5 MG PATCH.TD72 TD SCH (09:12)
--- NOTE | 2019-03-09 11:56 | PDOC PROGRESS REPORT ---
Subjective Progress Note for:: 03/09/19 Subjective:: The patient is a 58-year-old male with a past medical history significant with significant for gallbladder cancer with liver metastasis, hypertension, seizure disorder, GERD, and depression who was discharged home with home hospice services last week and unfortunately was readmitted for intractable nausea and vomiting. Patient was seen on morning rounds with multiple family members present. He was found resting in bed, comfortably, on room air. He was sleeping soundly; did not attempt to wake patient. Family members did note periods of respiratory pauses overnight. ROS is obtained from family members; no fever or chills, reports of chest pain, dyspnea, nausea/vomiting overnight. Improved hiccups. Overall his symptoms are significantly improved. Family has no other questions or concerns at this time. No concerns per nursing. Reason For Visit: GALL BLADDER CANCER WITH MEDS Physical Exam Vital Signs: Temp Pulse Resp BP Pulse Ox 97.6 F 95 13 157/95 H 97 03/06/19 07:36 03/06/19 07:36 03/06/19 10:01 03/06/19 10:01 03/06/19 13:00 General appearance: PRESENT: well-developed, other - acute and chronically ill- appearing Head exam: PRESENT: atraumatic, normocephalic Ear exam: PRESENT: normal external ear exam Mouth exam: PRESENT: dry mucosa, tongue midline Respiratory exam: PRESENT: symmetrical, unlabored, other - Irregular respiratory pattern;occasional short pauses Cardiovascular exam: PRESENT: RRR. ABSENT: diastolic murmur, rubs, systolic murmur Vascular exam: PRESENT: pallor Rectal exam: PRESENT: deferred Neurological exam: PRESENT: CN II-XII grossly intact Skin exam: PRESENT: intact, mottled, pallor, warm Results Impressions: PICC Line Insertion 03/06/19 00:00 IMPRESSION: Intra procedural imaging and fluoro Assessment and Plan - Diagnosis (1) Intractable nausea and vomiting Is this a current diagnosis for this admission?: Yes Plan: Resolved; no nausea/emesis overnight. Continue IV Protonix daily, Reglan every 4 as needed, scopolamine patch, IV Ativan/Haldol, and Thorazine for hiccups. (2) Need for comfort care Is this a current diagnosis for this admission?: Yes Plan: Now on comfort care measures only. Antiemetics as needed. IV Ativan or Haldol as needed for anxiety/agitation. IV morphine as needed for pain or tachypnea/air hunger. Scopolamine patch for oral secretions. Tylenol as needed for fever. Discharge planning consulted. (3) Liver metastases Is this a current diagnosis for this admission?: Yes Plan: Gallbladder cancer with liver metastasis. Now on comfort care measures only. Oncology has been consulted. (4) Metastasis from gallbladder cancer Is this a current diagnosis for this admission?: Yes Plan: Gallbladder cancer with liver metastasis. Now on comfort care measures only. Oncology has been consulted.
[2019-03-09] MEDS: ACETAMINOPHEN 650 MG SUPP.RECT PR PRN (15:31)
[2019-03-10] MEDS: LORAZEPAM INJ 2 MG/1 ML VIAL IV PRN ×4 (00:19→14:07)
[2019-03-10] MEDS: MORPHINE SULFATE 10 MG/ML INJ IV PRN ×5 (07:55→18:19)
--- NOTE | 2019-03-10 08:17 | PDOC PROGRESS REPORT ---
Subjective Progress Note for:: 03/10/19 Subjective:: Patient resting comfortably. Family is at bedside. They report some rattle in his chest. Scopalamine patch was placed. This has helped. Reason For Visit: GALL BLADDER CANCER WITH MEDS Physical Exam Vital Signs: Temp Pulse Resp BP Pulse Ox 97.6 F 95 13 157/95 H 97 03/06/19 07:36 03/06/19 07:36 03/06/19 10:01 03/06/19 10:01 03/06/19 13:00 Intake & Output 03/09/19 03/10/19 03/11/19 06:59 06:59 06:59 Intake Total 0 Balance 0 General appearance: PRESENT: no acute distress, thin Head exam: PRESENT: normocephalic Respiratory exam: PRESENT: clear to auscultation deysi, unlabored Neurological exam: PRESENT: other - sleeping peacefully Psychiatric exam: ABSENT: agitated Results Impressions: PICC Line Insertion 03/06/19 00:00 IMPRESSION: Intra procedural imaging and fluoro Assessment & Plan - Diagnosis (1) Metastasis from gallbladder cancer Is this a current diagnosis for this admission?: Yes (2) Nausea and vomiting Qualifiers: Vomiting type: unspecified Vomiting Intractability: non-intractable Qualified Code(s): R11.2 - Nausea with vomiting, unspecified Is this a current diagnosis for this admission?: Yes - Time Time Spent with patient: Less than 15 minutes - Plan Summary Plan Summary: Patient and family very happy with level of comfort. No changes today. Continue scopalamine patch. I will be available as needed over the weekend. Anticipate patient's in the next few days.
[2019-03-10] MEDS: ACETAMINOPHEN 650 MG SUPP.RECT PR PRN (12:24)
[2019-03-10] MEDS ORDERED: LORAZEPAM INJ 2 MG/1 ML VIAL IV PRN (14:44)
[2019-03-10] MEDS ORDERED: ACETAMINOPHEN 650 MG SUPP.RECT PR PRN (16:01)
--- NOTE | 2019-03-10 16:15 | PDOC PROGRESS REPORT ---
Subjective Progress Note for:: 03/10/19 Subjective:: The patient is a 58-year-old male with a past medical history significant with significant for gallbladder cancer with liver metastasis, hypertension, seizure disorder, GERD, and depression who was discharged home with home hospice services last week and unfortunately was readmitted for intractable nausea and vomiting. Patient was seen on morning rounds with multiple family members present. He was found resting in bed, comfortably, on room air. He was sleeping soundly; did not attempt to wake patient. Showing signs of transition (increased dusky/mottled extremities, irregular respiratory pattern, fever). ROS is obtained from family members; no nausea/vomiting overnight. Hiccups have resolved. Overall his symptoms are significantly improved. Long discussion had w/ multiple family members, Nadine and Shawna (patient experience), and myself regarding previous admission; specifically MRSA bacteremia, antibiotics, ARF, and hospice decision. All question/concerns addressed. No concerns per nursing. Reason For Visit: GALL BLADDER CANCER WITH MEDS Physical Exam Vital Signs: Temp Pulse Resp BP Pulse Ox 97.6 F 95 13 157/95 H 97 03/06/19 07:36 03/06/19 07:36 03/06/19 10:01 03/06/19 10:01 03/06/19 13:00 Intake & Output 03/09/19 03/10/19 03/11/19 06:59 06:59 06:59 Intake Total 0 Balance 0 General appearance: PRESENT: mild distress, well-developed Mouth exam: PRESENT: dry mucosa Teeth exam: PRESENT: poor dentation Respiratory exam: PRESENT: symmetrical, tachypnea, other - irregular, shallow Cardiovascular exam: PRESENT: tachycardia Vascular exam: PRESENT: pallor Neurological exam: PRESENT: other - obtunded; occasional moaning Skin exam: PRESENT: mottled, pallor Results Impressions: PICC Line Insertion 03/06/19 00:00 IMPRESSION: Intra procedural imaging and fluoro Assessment and Plan - Diagnosis (1) Intractable nausea and vomiting Is this a current diagnosis for this admission?: Yes Plan: Resolved; no nausea/emesis overnight. Continue IV Protonix daily, Reglan every 4 as needed, scopolamine patch, IV Ativan/Haldol, and Thorazine for hiccups. (2) Need for comfort care Is this a current diagnosis for this admission?: Yes Plan: Now on comfort care measures only. Antiemetics as needed. IV Ativan or Haldol as needed for anxiety/agitation. IV morphine as needed for pain or tachypnea/air hunger. Scopolamine patch for oral secretions. Scheduled Toradol and as needed Tylenol for fever. Discharge planning consulted. (3) Liver metastases Is this a current diagnosis for this admission?: Yes Plan: Gallbladder cancer with liver metastasis. Now on comfort care measures only. Oncology has been consulted. (4) Metastasis from gallbladder cancer Is this a current diagnosis for this admission?: Yes Plan: Gallbladder cancer with liver metastasis. Now on comfort care measures only. Oncology has been consulted. - Time Time Spent with patient: 35 or more minutes Anticipated discharge: Other - Imminent Within: within 48 hours
[2019-03-10] MEDS ORDERED: KETOROLAC TROMETHAMINE INJ/PF 30 MG/1 ML SDV IV SCH (17:00)
--- NOTE | 2019-03-11 08:03 | Death Summary ---
Summary Date : 03/10/19 Autopsy: No Resuscitation Status: Comfort Measures Only Consulting Provider: Oumou - Final Diagnosis (1) Intractable nausea and vomiting Is this a current diagnosis for this admission?: Yes (2) Need for comfort care Is this a current diagnosis for this admission?: Yes (3) Liver metastases Is this a current diagnosis for this admission?: Yes (4) Metastasis from gallbladder cancer Is this a current diagnosis for this admission?: Yes Hospital Course:: H&P per Dr. Cheema: JOANNA PUENTE is a 58 year old male with history of gallbladder cancer with metastasis to the liver, hospice patient, with history of hypertension depression, gastric further reflux disease discharged 4 days ago with hospice care came back to the emergency room with persistent nausea and vomitings patient unable to keep anything down and persistent diarrhea they tried to give Compazine is not helping hospice nurse recommended the family to take the patient to the ER for possible PICC line. PICC line was placed in the emergency room then the hospice nurse told the ER physician that they cannot able to take care of the PICC line as an outpatient patient is to be admitted to the hospital for further management. I had a long discussion with the patient's daughter and the family members they do not want any lab work did not want any IV fluids they requesting only comfort care measures. CODE STATUS is DNR/DNI. Course: The patient was admitted to the medical floor for comfort care measures only. His oncologist, Dr. Yates, was consulted to assist with medication management. He was provided analgesics, antiemetics, and IV Ativan as needed for symptom management. No vital signs or laboratory evaluation was obtained during his admission. He expectantly 03/10/2019 at 1919.
== END 2019-03-10 22:07 | DRG 436 ==
LOC: ER 07:15 → EH 11:04 → UNDOADMOB 11:04 → EH 16:04 → 5 18:37
PROVIDERS: ADMIT Internal Medicine; ATTEND Internal Medicine
PROC: 02H633Z Insertion of Infusion Device into Right Atrium, Percutaneous Approach (ICD-10-PCS; principal; 2019-03-06)
PROC: B548ZZA Ultrasonography of Superior Vena Cava, Guidance (ICD-10-PCS; 2019-03-06)
PROC: B518ZZA Fluoroscopy of Superior Vena Cava, Guidance (ICD-10-PCS; 2019-03-06)
DX: C23 Malignant neoplasm of gallbladder (principal); C78.7 Secondary malignant neoplasm of liver and intrahepatic bile duct; Z51.5 Encounter for palliative care; Z66 Do not resuscitate; I10 Essential (primary) hypertension; F32.9 Major depressive disorder, single episode, unspecified; K21.9 Gastro-esophageal reflux disease without esophagitis; E86.0 Dehydration; R11.2 Nausea with vomiting, unspecified; R19.7 Diarrhea, unspecified; G40.909 Epilepsy, unspecified, not intractable, without status epilepticus; Z79.899 Other long term (current) drug therapy; Z79.891 Long term (current) use of opiate analgesic; Z91.040 Latex allergy status; Z87.891 Personal history of nicotine dependence; Z82.49 Family history of ischemic heart disease and other diseases of the circulatory system; Z88.5 Allergy status to narcotic agent
CPT/HCPCS: 36569; 76937; 77001; 96374; 99285; C1752; J0780; J1644; J1885; J2060; J2270; J2550; J2765; J3230; J3490; S0164